=== PATIENT | female | born 1955 | race Caucasian/White ===

== ENCOUNTER → 2018-08-23 07:39 | Outpatient (CLI) | payer BC, SELFPAY ==
[2018-08-14 11:01] VITALS: BMI 29.4
[2018-08-23 10:12] LABS: ALB/GLOB Ratio 1.1 RATIO (0.9-2.4); AST(SGOT) 22 U/L (15-37); Alanine Aminotransfer ALT/SGPT 31 U/L (13-56); Albumin, Serum 3.8 g/dL (3.2-5.0); Alkaline Phosphatase 71 U/L (45-117); Anion Gap 10 (5-15); BUN 18 mg/dL (7-18); BUN/Creat Ratio 25.8 RATIO (10-20); Chloride 105 mmol/L (98-107); Cholesterol 201 mg/dL (200); EST Glomerular Filtration Rate 91 mL/min (>60); Est Glom Filt Rate - Afr Amer 110 mL/min (>60); Globulin 3.6 g/dL (2.2-4.2); Glucose 81 mg/dL (74-106); High Density Lipoprotein 90 mg/dL; Potassium 3.9 mmol/L (3.5-5.1); Protein, Total 7.4 g/dL (6.4-8.2); Sodium Level 141 mmol/L (136-145); Triglycerides 102 mg/dL; Very Low Density Lipoprotein 20 mg/dL (5-40)
== END ==
PROVIDERS: Family Provider Family Medicine; PCP Family Medicine; Referring Provider Family Medicine; Visit Provider Family Medicine
DX: Z12.11 Encounter for screening for malignant neoplasm of colon (principal); I10 Essential (primary) hypertension
CPT/HCPCS: 36415; 80053; 80061

== ENCOUNTER → 2018-08-23 08:49 | Outpatient (CLI) | payer BC, SELFPAY ==
[2018-08-14 11:01] VITALS: BMI 29.4
--- NOTE | 2018-08-23 08:51 | BI_ITS ---
MAMMOGRAPHY - BILATERAL SCREENING 3-D JARVIS SYNTHESIS REASON FOR EXAM: Female, 63 years old. Bilateral Screening 3-D tomosynthesis PERTINENT HISTORY: No significant family history. TECHNIQUE: 2-D mammograms and 3-D Jarvis synthesis of the breast (s) were performed. CAD was performed. COMPARISON: August 14, 2017 FINDINGS: The breast composition is almost entirely fat. Scattered benign calcifications are seen. No dense spiculated masses or suspicious microcalcifications are identified. No architectural distortion is identified. There is no skin thickening or retraction. There has been no significant change since the prior study. BI/SCREENING MAMM (CAD), BILAT IMPRESSION: No mammographic signs of malignancy. Routine yearly mammograms recommended. ASSESSMENT CATEGORY: BIRADS Category 1: Negative. A letter regarding these results will be sent to the patient by the facility within 30 days. FOLLOW UP RECOMMENDATION: Yearly follow up mammogram recommended. (A) Approximately 10% of breast cancers are not detected by mammography. A normal mammogram should not delay biopsy of a clinically suspicious abnormality. Electronically Signed: Yosef Johnson MD at 11:05 EST , Service support ,
== END ==
PROVIDERS: Family Provider Family Medicine; PCP Family Medicine; Referring Provider Family Medicine; Visit Provider Family Medicine
DX: Z12.31 Encounter for screening mammogram for malignant neoplasm of breast (principal)
CPT/HCPCS: 77063; 77067

== ENCOUNTER → 2018-08-26 07:47 | Outpatient (CLI) | payer BC, SELFPAY ==
[2018-08-14 11:01] VITALS: BMI 29.4
== END ==
PROVIDERS: Family Provider Family Medicine; PCP Family Medicine; Referring Provider Family Medicine; Visit Provider Family Medicine
DX: Z12.11 Encounter for screening for malignant neoplasm of colon (principal)
CPT/HCPCS: 82274

== ENCOUNTER → 2019-06-19 13:52 | Outpatient (CLI) | payer BC, SELFPAY ==
[2019-05-30 14:46] VITALS: BMI 29.4
--- NOTE | 2019-06-19 13:57 | BI_ITS ---
MAMMOGRAPHY - BILATERAL DIAGNOSTIC REASON FOR EXAM: Female, 63 years old. One-month history of right breast pain. PERTINENT HISTORY: Non-contributory. TECHNIQUE: Digital bilateral breast nino (3D mammographic acquisition) in the CC and MLO projections. 2-D mediolateral oblique (MLO) and craniocaudad (CC) views of both breasts were obtained. CAD: Full Field Digital Mammography with Computer Added Detection was performed. COMPARISON: Comparison is made with prior study dated August 15, 2018. FINDINGS: Breast Composition: The breasts are almost entirely fatty. There are no dominant masses or suspicious calcifications. No other significant abnormalities are identified. There has been no significant change since the prior study. BI/DIAG MAMM W/CAD, BILAT IMPRESSION: Stable bilateral diagnostic mammogram. With the patient's history of a right breast pain, correlation with ultrasound is recommended. ASSESSMENT CATEGORY: BIRADS Category 0: Incomplete. Need additional imaging evaluation. A letter regarding these results will be sent to the patient by the facility within 30 days. Approximately 10% of breast cancers are not detected by mammography. A normal mammogram should not delay biopsy of a clinically suspicious abnormality. Electronically Signed: Oli Mathews, at 15:41 EDT , Service support ,
--- NOTE | 2019-06-19 13:57 | US_ITS ---
STUDY: ULTRASOUND BREAST - RIGHT REASON FOR EXAM: Female, 63 years old. Pain at the site of the skin abnormality. TECHNIQUE: Axial and longitudinal images of the RIGHT breast were performed with a high resolution ultrasound transducer. COMPARISON: Comparison is made with prior mammogram done earlier in the day. FINDINGS: RIGHT Breast: The lower outer quadrant of the right breast was examined by ultrasound. There is homogeneous fibroglandular tissue. No solid or cystic mass lesion is seen. US/Breast Limited Unilateral IMPRESSION: Unremarkable sonographic examination. ASSESSMENT CATEGORY: BIRADS Category 1: Negative. A letter regarding these results will be sent to the patient by the facility within 30 days. Electronically Signed: Oli Mathews, at 15:45 EDT , Service support ,
== END ==
PROVIDERS: Family Provider Family Medicine; PCP Family Medicine; Referring Provider Nurse Practitioner Family; Visit Provider Nurse Practitioner Family
DX: N63.10 Unspecified lump in the right breast, unspecified quadrant (principal); N64.4 Mastodynia
CPT/HCPCS: 76642; 77062; 77066; G0279

== ENCOUNTER → 2019-09-09 13:45 | Outpatient (CLI) | payer BC, SELFPAY ==
[2019-09-09 13:20] VITALS: BMI 29.4
[2019-09-16 16:17] LABS: HPV HC, High Risk Negative (Negative)
[2019-09-16 16:18] LABS: HPV Reflexed? YES, CHARGE PATIENT
== END ==
PROVIDERS: Family Provider Family Medicine; PCP Family Medicine; Visit Provider Family Medicine
DX: Z01.419 Encounter for gynecological examination (general) (routine) without abnormal findings (principal)
CPT/HCPCS: 87624; 88175; G0145

== ENCOUNTER → 2019-09-26 09:07 | Outpatient (CLI) | payer BC, SELFPAY ==
[2019-09-09 13:20] VITALS: BMI 29.4
[2019-09-26 13:16] LABS: ALB/GLOB Ratio 1.1 RATIO (0.9-2.4); AST(SGOT) 23 U/L (15-37); Alanine Aminotransfer ALT/SGPT 30 U/L (13-56); Albumin, Serum 3.7 g/dL (3.2-5.0); Alkaline Phosphatase 69 U/L (45-117); Anion Gap 5 (5-15); BUN 15 mg/dL (7-18); BUN/Creat Ratio 19.4 RATIO (10-20); Calcium,Total 9.2 mg/dL (8.5-10.1); Chloride 108 mmol/L (98-107); Cholesterol 173 mg/dL (200); Creatinine, Serum 0.77 mg/dL (0.55-1.02); EST Glomerular Filtration Rate 81 mL/min (>60); Est Glom Filt Rate - Afr Amer 97 mL/min (>60); Globulin 3.5 g/dL (2.2-4.2); Glucose 87 mg/dL (74-106); High Density Lipoprotein 82 mg/dL; Potassium 4.3 mmol/L (3.5-5.1); Protein, Total 7.2 g/dL (6.4-8.2); Sodium Level 140 mmol/L (136-145); Triglycerides 87 mg/dL; Very Low Density Lipoprotein 17 mg/dL (5-40)
== END ==
PROVIDERS: PCP Family Medicine; Referring Provider Family Medicine; Visit Provider Family Medicine
DX: Z01.419 Encounter for gynecological examination (general) (routine) without abnormal findings (principal); E78.00 Pure hypercholesterolemia, unspecified
CPT/HCPCS: 36415; 80053; 80061

== ENCOUNTER → 2020-07-30 | Outpatient (CLI) | payer BC, SELFPAY | END | disposition home or self-care (01) | LOC: LABSPEC 14:09 | PROVIDERS: PCP Family Medicine; Referring Provider Nurse Practitioner Family; Visit Provider Nurse Practitioner Family | DX: U07.1 COVID-19 (principal) | CPT/HCPCS: 87635; U0003 ==

== ENCOUNTER → 2021-07-06 14:34 | Outpatient (CLI) | payer MEDICARE, SELFPAY ==
[2021-07-06 18:21] LABS: AST(SGOT) 21 U/L (15-37); Alanine Aminotransfer ALT/SGPT 27 U/L (13-56); Albumin, Serum 3.8 g/dL (3.2-5.0); Alkaline Phosphatase 72 U/L (45-117); Anion Gap 7 (5-15); BUN 16 mg/dL (7-18); BUN/Creat Ratio 20.5 RATIO (10-20); Calcium,Total 9.4 mg/dL (8.5-10.1); Chloride 107 mmol/L (98-107); Cholesterol 175 mg/dL (200); Creatinine, Serum 0.78 mg/dL (0.55-1.02); EST Glomerular Filtration Rate 79 mL/min (>60); Est Glom Filt Rate - Afr Amer 96 mL/min (>60); Globulin 3.9 g/dL (2.2-4.2); Glucose 87 mg/dL (74-106); High Density Lipoprotein 76 mg/dL; Protein, Total 7.7 g/dL (6.4-8.2); Sodium Level 139 mmol/L (136-145); Triglycerides 126 mg/dL; Very Low Density Lipoprotein 25 mg/dL (5-40)
[2021-07-08 13:48] LABS: LDL, Direct 120295 81 mg/dL (0-99)
== END ==
PROVIDERS: PCP Family Medicine; Referring Provider Family Medicine; Visit Provider Family Medicine
DX: I10 Essential (primary) hypertension (principal); E78.00 Pure hypercholesterolemia, unspecified
CPT/HCPCS: 36415; 80053; 80061; 83721

== ENCOUNTER → 2021-08-02 09:46 | Outpatient (CLI) | payer MEDICARE, SELFPAY ==
--- NOTE | 2021-08-02 09:48 | BI_ITS ---
MAMMOGRAPHY - BILATERAL SCREENING REASON FOR EXAM: Female, 65 years old. Routine annual screening examination. PERTINENT HISTORY: Non-contributory. TECHNIQUE: Digital bilateral breast jarvis (3D mammographic acquisition) in the CC and MLO projections. 2-D mediolateral oblique (MLO) and craniocaudad (CC) views of both breasts were obtained. CAD: Full Field Digital Mammography with Computer Added Detection was performed. COMPARISON: Comparison is made with prior examination done 06/19/2019 and 08/23/2018. FINDINGS: Breast Composition: The breasts are almost entirely fatty. There are no dominant masses or suspicious calcifications. No other significant abnormalities are identified. There has been no significant change since the prior study. BI/SCRN MAMM (CAD)W/JARVIS BILAT IMPRESSION: Stable bilateral screening mammogram. Yearly follow-up mammogram recommended. (A) ASSESSMENT CATEGORY: BIRADS Category 1: Negative. A letter regarding these results will be sent to the patient by the facility within 30 days. Approximately 10% of breast cancers are not detected by mammography. A normal mammogram should not delay biopsy of a clinically suspicious abnormality. [id number] Electronically Signed: Oli Mathews MD at 10:36 EST , Service support ,
== END ==
PROVIDERS: PCP Family Medicine; Referring Provider Family Medicine; Visit Provider Family Medicine
DX: Z12.31 Encounter for screening mammogram for malignant neoplasm of breast (principal)
CPT/HCPCS: 77063; 77067

== ENCOUNTER 2021-11-15 10:24 | Outpatient (CLI) | payer MEDICARE, SELFPAY ==
--- NOTE | 2021-11-15 10:25 | RAD_ITS ---
STUDY: X-RAY - RIGHT SHOULDER REASON FOR EXAM: Female, 66 years old. PAIN TECHNIQUE 4 view(s) of the shoulder. COMPARISON: None. FINDINGS: Normal glenohumeral articulation. Normal acromioclavicular joint. Normal acromion. Normal humeral head and visualized proximal humerus. The soft tissue structures are unremarkable. Normal visualized pulmonary apex. RAD/Shoulder min 2 Views IMPRESSION: Normal x-ray examination of the shoulder. Electronically Signed: Juan Pablo Clemons MD at 6:53 EDT ,
== END 2021-11-15 23:59 | disposition home or self-care (01) ==
PROVIDERS: PCP Family Medicine; Referring Provider Nurse Practitioner Family; Visit Provider Nurse Practitioner Family
DX: M25.511 Pain in right shoulder (principal)
CPT/HCPCS: 73030

== ENCOUNTER → 2022-03-02 | Outpatient (CLI) | payer MEDICARE, SELFPAY ==
--- NOTE | 2022-03-02 15:36 | MRI_ITS ---
STUDY: MRI RIGHT SHOULDER REASON FOR EXAM: Female, 66 years old. right shoulder pain right shoulder pain TECHNIQUE: Standardized fat and water weighted pulse sequences were obtained in all 3 orthogonal planes. COMPARISON: None. FINDINGS: Normal supraspinatus tendon. Normal infraspinatus tendon. Normal subscapularis tendon. Normal teres minor tendon. Normal supraspinatus muscle. Normal infraspinatus muscle. Normal subscapularis muscle. Normal teres minor muscle. Normal glenohumeral articulation. Normal humeral head and visualized proximal humerus. Normal biceps labral complex. Normal intracapsular long biceps tendon. Normal labrum. Normal capsulo- ligamentous complex. Normal rotator interval. There is moderate osteoarthritis of the acromioclavicular articulations. There is a Type II morphology (curved), with a neutral orientation. There is minimal fluid distention of the subacromial bursa, consistent with mild subacromial-subdeltoid bursitis. Normal visualized coracohumeral and coracoacromial ligaments. Normal quadrilateral space. Normal axillary space. Normal deltoid muscle. Normal trapezius muscle. MRI/Upper Ext Joint Only(Routine) IMPRESSION: There is minimal fluid distention of the subacromial bursa, consistent with mild subacromial-subdeltoid bursitis. Electronically Signed: Elijah Tesfaye MD at 17:21 EDT Reading Location ID and State: [facility] / [place] , Service support ,
== END | disposition home or self-care (01) ==
PROVIDERS: PCP Family Medicine; Referring Provider Nurse Practitioner; Visit Provider Nurse Practitioner
DX: M75.41 Impingement syndrome of right shoulder (principal)
CPT/HCPCS: 73221

== ENCOUNTER → 2022-08-23 | Outpatient (CLI) | payer MEDICARE, SELFPAY ==
[2022-08-23 17:35] LABS: ALB/GLOB Ratio 1.3 RATIO (0.9-2.4); AST(SGOT) 24 U/L (15-37); Alanine Aminotransfer ALT/SGPT 35 U/L (13-56); Albumin, Serum 4.1 g/dL (3.2-5.0); Alkaline Phosphatase 67 U/L (45-117); Anion Gap 5 (5-15); BUN 21 mg/dL (7-18); BUN/Creat Ratio 23.9 RATIO (10-20); Calcium,Total 9.5 mg/dL (8.5-10.1); Chloride 107 mmol/L (98-107); Cholesterol 211 mg/dL (200); Creatinine, Serum 0.88 mg/dL (0.55-1.02); EST Glomerular Filtration Rate 69 mL/min (>60); Est Glom Filt Rate - Afr Amer 83 mL/min (>60); Globulin 3.1 g/dL (2.2-4.2); Glucose 85 mg/dL (74-106); High Density Lipoprotein 98 mg/dL; Potassium 4.6 mmol/L (3.5-5.1); Protein, Total 7.2 g/dL (6.4-8.2); Sodium Level 140 mmol/L (136-145); Triglycerides 93 mg/dL; Very Low Density Lipoprotein 19 mg/dL (5-40)
== END | disposition home or self-care (01) ==
LOC: BIMLAB 15:52
PROVIDERS: PCP Family Medicine; Referring Provider Family Medicine; Visit Provider Family Medicine
DX: I10 Essential (primary) hypertension (principal)
CPT/HCPCS: 36415; 80053; 80061

== ENCOUNTER → 2022-08-30 | Outpatient (CLI) | payer MEDICARE, OTHER, SELFPAY ==
--- NOTE | 2022-08-30 08:17 | BI_ITS ---
MAMMOGRAPHY - BILATERAL SCREENING REASON FOR EXAM: Female, 67 years old. Routine annual screening examination. PERTINENT HISTORY: Non-contributory. TECHNIQUE: Digital bilateral breast jarvis (3D mammographic acquisition) in the CC and MLO projections. 2-D mediolateral oblique (MLO) and craniocaudad (CC) views of both breasts were obtained. CAD: Full Field Digital Mammography with Computer Added Detection was performed. COMPARISON: Comparison is made with prior study dated 08/02/2021 and 06/19/2019. FINDINGS: Breast Composition: The breasts are almost entirely fatty. There are no dominant masses or suspicious calcifications. No other significant abnormalities are identified. There has been no significant change since the prior study. BI/SCRN MAMM (CAD)W/JARVIS BILAT IMPRESSION: Stable bilateral screening mammogram. Yearly follow-up mammogram recommended. (A) ASSESSMENT CATEGORY: BIRADS Category 1: Negative. A letter regarding these results will be sent to the patient by the facility within 30 days. Approximately 10% of breast cancers are not detected by mammography. A normal mammogram should not delay biopsy of a clinically suspicious abnormality. [id number] Electronically Signed: Oli Mathews MD at 8:56 EST ,
== END | disposition home or self-care (01) ==
PROVIDERS: PCP Family Medicine; Visit Provider Family Medicine
DX: Z12.31 Encounter for screening mammogram for malignant neoplasm of breast (principal)
CPT/HCPCS: 77063; 77067

== ENCOUNTER → 2023-09-04 | Outpatient (CLI) | payer MEDICARE, OTHER, SELFPAY ==
--- NOTE | 2023-09-04 16:01 | RAD_ITS ---
STUDY: X-RAY - PELVIS AND RIGHT HIP REASON FOR EXAM: Female, 68 years old. right hip pain TECHNIQUE: 3 views of the pelvis and hip. COMPARISON: None. FINDINGS: There is a non-specific bowel gas pattern. Normal visualized soft tissue structures. Normal bilateral iliac wings, sacroiliac joints and visualized sacrum. Normal bilateral superior and inferior pubic rami. Normal pubic symphysis. Normal bilateral ischial tuberosities. Normal visualized femoral head. Mild subchondral cystic changes in the right acetabulum. Normal hip joint. RAD/HIP, UNI W/ Pelvis 2-3 Views IMPRESSION: Mild subchondral cystic changes within the acetabulum. No acute fracture or other significant bony pathology If pain persists MRI recommended Electronically Signed: Nikita Perez MD at 19:49 EST ,
--- OUTSIDE RECORDS SUMMARY | 2023-09-04 17:53 | XMS RPT_ITS | CCD ---
Author Name Unknown Address [address] [place] [address] Organization [facility] Care Team Providers Care Machine Former Name Role Phone Luis Eduardo Watts DO Primary Care Provider LUIS EDUARDO WATTS DO Primary Care Physician MARIAN CARDOSO Attending Unavailable BROWN, LUIS EDUARDO R Primary Care Unavailable MARIAN CARDOSO Referring Unavailable BROWN LUIS EDUARDO R Primary Care Unavailable MARIE DIMAS Attending MARIE Mullins Referring Denisavakalie Watts DO Luis Eduardo R Primary Care Provider Luis Eduardo Watts R Primary Care Provider BEBO BOGGS Attending Unavailable BROWN, LUIS EDUARDO Primary Care Unavailable BEBO BOGGS Referring Unavailable BROWN, LUIS EDUARDO Primary Care Unavailable RHETT LEWIS Attending Unavailable RHETT LEWIS Attending Unavailable ALMAZ, LUIS EDUARDO R Primary Care Unavailable RHETT LEWIS Referring Unavailable RHETT LEWIS Referring Unavailable RHETT LEWIS Attending Unavailable BROWN, LUIS EDUARDO R Primary Care Unavailable BROWN, LUIS EDUARDO R Primary Care Unavailable BROWN, LUIS EDUARDO R Primary Care Unavailable RHETT LEWIS Attending Unavailable Allergies Allergy Classification Reported Allergen(s) Allergy Type Date of Onset Reaction(s) Facility (19 sources) Sulfonamides (Antibiotic); Translations: [SULFA (SULFONAMIDE ANTIBIOTICS)] Propensity to adverse reactions to drug 9 Unknown [facility] Work Phone: (2 sources) Sulfamethoxazole; Translations: [sulfamethoxazole ] Drug Allergy [facility] Medications Current Medications Medication Drug Class(es) Dates Sig (Normalized) Sig (Original) calcium carbonate 500 mg oral tablet (2 sources) Start: 10-19-2009 take 500 mg by mouth twice daily calcium carbonate 500 mg, PO, BID Start Date: 10/19/09 Status: Ordered Fish Oils (2 sources) Start: 06-23-2015 Fish Oil 1200 mg oral capsule Dose : 1,200 mg = 1 cap(s), Oral, TID, 0 Refill(s) Start Date: 06/23/15 Status: Ordered meloxicam 15 mg oral tablet (2 sources) Nonsteroidal Anti-inflammatory Drug Start: 02-28-2022 take 1 tablet by mouth once daily as needed for pain meloxicam (Mobic) 15 MG tablet TAKE 1 TABLET BY MOUTH EVERY DAY NEEDED FOR PAIN. TAKE TYLENOL FOR BREAKTHROUGH PAIN 0 02/28/2022 Active 24 hr metoprolol succinate 25 mg extended release oral tablet (19 sources) beta-Adrenergic Nando Start: 02-25-2021 End: 02-23-2024 take 0.5 tablet by mouth once daily in the morning metoprolol succinate ER (TOPROL XL) 25 mg 24 hr tablet Indications: Benign hypertension Take 0.5 tablets by mouth every morning. 45 tablet 3 02/28/2023 02/23/2024 Active Completed/Discontinued Medications Medication Drug Class(es) Dates Sig (Normalized) Sig (Original) aspirin 81 mg delayed release oral tablet (18 sources) Platelet Aggregation Inhibitor, Nonsteroidal Anti-inflammatory Drug Start: 06-23-2015 take 1 tablet by mouth once daily aspirin, enteric coated (ECOTRIN LOW STRENGTH) 81 mg EC tablet Take 1 tablet by mouth once daily. 0 02/19/2020 Active Problems Active Problems Problem Classification Problem Date Documented Date Episodic/Chronic Cardiac dysrhythmias (15 sources) Nonsustained ventricular tachycardia ; Translations: [Ventricular tachycardia] 02-19-2020 Chronic Conduction disorders (15 sources) Left bundle branch block; Translations: [Left bundle-branch block, unspecified] 02-19-2020 Chronic Congestive heart failure; nonhypertensive (16 sources) Chronic systolic heart failure; Translations: [Chronic systolic (congestive) heart failure] Onset: 0 02-19-2020 Chronic Coronary atherosclerosis and other heart disease (15 sources) Coronary arteriosclerosis; Translations: [Atherosclerotic heart disease of [place] coronary artery without angina pectoris] 02-19-2020 Chronic Disorders of lipid metabolism (16 sources) Mixed hyperlipidemia; Translations: [Mixed hyperlipidemia] Onset: 0 02-19-2020 Chronic Essential hypertension (18 sources) Benign hypertension; Translations: [Essential (primary) hypertension] Onset: 0 02-19-2020 Chronic Other aftercare (1 source) Long-term current use of drug therapy; Translations: [Other director long term care (current) drug therapy] Episodic Other aftercare (1 source) Drug monitoring done; Translations: [Encounter for therapeutic drug level monitoring] Episodic Other connective tissue disease (1 source) Impingement syndrome of right shoulder region; Translations: [Impingement syndrome of right shoulder] Episodic Other connective tissue disease (2 sources) Digital mucous cyst of right hand; Translations: [Ganglion, right hand] 01-31-2023 Episodic Other connective tissue disease (2 sources) Ganglion, right hand; Translations: [Ganglion, right hand] Onset: 3 Episodic Other non-traumatic joint disorders (1 source) Pain of right shoulder joint; Translations: [Pain in right shoulder] Episodic Other screening for suspected conditions (not mental disorders or infectious disease) (1 source) Electrocardiogram abnormal; Translations: [Abnormal electrocardiogram [ECG] [EKG]] Episodic Alyson-; endo-; and myocarditis; cardiomyopathy (except that caused by tuberculosis or sexually transmitted disease) (15 sources) Dilated cardiomyopathy; Translations: [Dilated cardiomyopathy] 02-19-2020 Chronic Residual codes; unclassified (3 sources) Personal history of other medical treatment; Translations: [H/O echocardiogram] Onset: 0 Episodic Residual codes; unclassified (1 source) Other specified health status; Translations: [Non-smoker] Onset: 4 Episodic Syncope (1 source) Syncope; Translations: [Syncope and collapse] Episodic Past or Other Problems Problem Classification Problem Date Documented Date Episodic/Chronic Other connective tissue disease (2 sources) Impingement syndrome of right shoulder; Translations: [Impingement syndrome of right shoulder] Onset: 12-30-2021 Episodic Residual codes; unclassified (15 sources) Past history of procedure; Translations: [Personal history of other medical treatment] Onset: 04-23-2018 02-19-2020 Episodic Residual codes; unclassified (15 sources) History of cardiac catheterization; Translations: [Other specified postprocedural states] Onset: 10-21-2009 02-19-2020 Episodic Residual codes; unclassified (1 source) Other specified postprocedural states; Translations: [History of cardiac cath] Onset: 02-19-2020 Episodic Syncope (1 source) Syncope Onset: 01-09-2023 Results Test Name Value Interpretation Reference Range Facil ity Vital Signs Date Time Vital Sign Value Performing Clinician Faci lity 01-31-2023 13:01-0400 Body height 170.2 cm Bebo Boggs MD Work Phone: [facility] 01-31-2023 13:01-0400 Body mass index (BMI) [Ratio] 28.19 kg/m2 Bebo Boggs MD Work Phone: [facility] 01-31-2023 13:01-0400 Body weight 81.65 kg Bebo Boggs MD Work Phone: [facility] 01-31-2023 13:01-0400 Diastolic blood pressure 72 mm[Hg] Bebo Boggs MD Work Phone: [facility] 01-31-2023 13:01-0400 Systolic blood pressure 124 mm[Hg] Bebo Boggs MD Work Phone: [facility] Encounters Encounter Date Encounter Type Care Provider Facility Start: 08-29-2023 End: 08-29-2023 ambulatory LUIS EDUARDO WTATS Facility:[id number] Start: 03-15-2023 Refill Rhett caro DO Work Phone: [facility] Cardiology Procedures Date Procedure Procedure Detail Performing Clinician Start: 02-06-2023 Echo tthrc r-t 2d w/ wom-mode compl spec&colr d Rhett Lewis DO Work Phone: Start: 01-31-2023 Radex fingr minimum 2 views Bebo Boggs MD Work Phone: Start: 08-30-2022 Mammography Bebo pitts MD Work Phone: Start: 06-24-2010 Catheterization DEMETRIUS YO STEPHANIE Plan of Treatment Date Care Activity Detail Author Start: 02-20-2024 BP CONTROLLED (<130/80) BP CONTROLLED (<130/80) [facility] Start: 08-30-2023 Screening for malignant neoplasm of breast Mammogram [facility] Start: 04-27-2023 Influenza vaccination [facility] Start: 2022 ADVANCE DIRECTIVE DISCUSSION ADVANCE DIRECTIVE DISCUSSION [facility] Start: 2022 BONE DENSITY BONE DENSITY [facility] Start: 2022 Bone Density Screening Bone Density Screening [facility] Start: 2022 Pneumococcal Vaccine: 65+ Years (1 - PCV) Pneumococcal Vaccine: 65+ Years (1 - PCV) [facility] Start: 08-27-2022 DEPRESSION ASSESSMENT DEPRESSION ASSESSMENT [facility] Start: 04-27-2022 Influenza vaccination [facility] Start: 02-21-2022 BP CONTROLLED (<130/80) BP CONTROLLED (<130/80) [facility] Start: 04-27-2021 Influenza vaccination INFLUENZA (#1) [facility] Start: 2007 SHINGRIX VACCINE (1 of 2) SHINGRIX VACCINE (1 of 2) [facility] Start: 2007 Zoster Vaccines (1 of 2) Zoster Vaccines (1 of 2) [facility] Start: 2002 COLOGUARD (FIT-DNA) COLOGUARD (FIT-DNA) [facility] Start: 2002 Colonoscopy COLONOSCOPY [facility] Start: 2002 COLORECTAL CANCER SCREENING COLORECTAL CANCER SCREENING [facility] Start: [address] COLONOGRAPHY [facility] Start: 2002 DIABETES SCREEN DIABETES SCREEN [facility] Start: 2002 Diabetes Screening Diabetes Screening [facility] Start: 2002 FECAL OCCULT BLOOD FECAL OCCULT BLOOD [facility] Start: 2002 Lipid 1996 panel - Serum or Plasma Lipid Screening [facility] Start: 2002 LIPID SCREEN LIPID SCREEN [facility] Start: 2002 SIGMOIDOSCOPY SIGMOIDOSCOPY [facility] Start: 1997 Mammography [facility] Start: 1987 HPV TESTING HPV TESTING [facility] Start: 1987 Screening for malignant neoplasm of cervix [facility] Start: 1978 PAP TESTING PAP TESTING [facility] Start: 1978 Screening for malignant neoplasm of cervix Pap Smear [facility] Start: 1976 [facility] Start: 1975 ANNUAL PCP TEAM CHRONIC DISEASE VISIT ANNUAL PCP TEAM CHRONIC DISEASE VISIT [facility] Start: 1975 BP CONTROLLED (<130/80) BP CONTROLLED (<130/80) [facility] Start: 1975 Diabetes mellitus screening Diabetes Screening [facility] Start: 1975 Hepatitis B surface antibody level LDL CHOLESTEROL [facility] Start: 1975 HEPATITIS C SCREENING HEPATITIS C SCREENING [facility] Start: 1975 Hepatitis C screening Hepatitis C Screening [facility] Start: 1975 HIV SCREENING HIV SCREENING [facility] Start: 1969 Adult depression screening assessment DEPRESSION SCREENING [facility] Start: 1964 DTaP/Tdap/Td Vaccines (1 - Tdap) DTaP/Tdap/Td Vaccines (1 - Tdap) [facility] Start: 1963 PNEUMOCOCCAL (1 - PCV) PNEUMOCOCCAL (1 - PCV) [facility] Start: 1963 Pneumococcal Vaccine: 65+ (1 - PCV) Pneumococcal Vaccine: 65+ (1 - PCV) [facility] Start: 1963 PNEUMOCOCCAL: 65+ (1 - PCV) PNEUMOCOCCAL: 65+ (1 - PCV) [facility] Start: 1962 COVID-19 VACCINE (#1) COVID-19 VACCINE (#1) [facility] Start: 1962 COVID-19 VACCINE (1) COVID-19 VACCINE (1) [facility] Start: 1958 MMR Vaccines (1 of 1 - Standard series) MMR Vaccines (1 of 1 - Standard series) [facility] Start: 02-25-1958 COVID-19 VACCINE (#1) COVID-19 VACCINE (#1) [facility] Start: 1957 Annual wellness visit Medicare Initial Physical (IPPE) [facility] Start: 1957 Creatinine measurement Creatinine Level [facility] Start: 1957 Echocardiography Echocardiogram [facility] Start: 1957 Lipid panel Lipid Panel [facility] Start: 1957 Medicare Annual Wellness (AWV) Medicare Annual Wellness (AWV) [facility] Start: 1957 Potassium measurement Potassium Level [facility] Start: 1957 Screening for malignant neoplasm of colon [facility] Start: 1957 Screening for osteoporosis Bone Density Scan [facility] End: 01-04-2024 Echocardiography ECHO Cardiology Routine Syncope, unspecified syncope type 1 Occurrences starting 01/04/2023 until 01/04/2024 [facility] Work Phone: Payers Date Payer Category Payer Medicare [id number] 2022 Unknown [id number] 2021 Unknown [id number] 2019 Medicare [id number] 2019 Unknown ANTHEM BLUE CROS S AND BLUE SHIELD ANTHEM MEDIBLUE HMO [id number] 2019-Present [phone] [address] [place] [address] HMO [id number] 2019 Unknown [id number] 2017 Medicare [id number] 2012 Unknown [employer]M BLUE CARD PPO OOS [id number] 2012-2019 [address] [place] [address] PPO [id number] 1957 Unknown [id number] 1957 Unknown [id number] Unknown [id number] Unknown [id number] Social History Date Type Detail Facility Start: 02-21-2021 End: 02-19-2023 Tobacco smoking status NHIS Never smoked tobacco [facility] Start: 02-21-2021 End: 02-19-2023 Tobacco use and exposure Smokeless tobacco non-user [facility] Start: 02-21-2021 End: 01-09-2023 Alcohol intake Current drinker of alcohol (finding) [facility] Start: 02-21-2021 History SDOH Alcohol Comment couple times a week [facility] Start: 1955 Sex Assigned At Female C [facility] Work Phone: Sex Assigned At Sex [facility] Tobacco smoking status NHIS Tobacco smoking consumption unknown [facility] Start: 01-22-2021 End: 01-31-2023 Exposure to SARS-CoV-2 (event) Not sure [facility] Start: 12-29-2022 End: 01-31-2023 History of Social function [facility] Start: 12-29-2022 End: 01-31-2023 Tobacco use panel [facility] Start: 1955 Sex Assigned At Not on file S [facility] National Score (1-100), lower number is lower risk 73 [facility] Start: 02-19-2020 Gender identity Identifies as female gender (finding) [facility] Work Phone: Functional Status Date Assessment Result Facility 12-30-2021 Functional Status Home Living Ad ditional Information OBJECTIVE Vitals: BP 127/73 Posture: slight forward head, forward shoulders Gait: amb with no AD Transfers: WNL Sensation: no abnormalities or asymmetries reported Reflexes: NT Edema: none AROM: left UE WNL, right UE WNL except, functional IR ~~L3 with functional IR of L ~ T11 - however functional limits with some pain PROM: pain with endrange flexion, abduction, and ER - WNL Cervical AROM: no ROM provokes shoulder symptoms [facility] 11-18-2021 Functional Status [facility] Clinical Notes 04-01-2015 to 08-29-2023 Telephone Encounter - Manju Becker Ginger - 03/15/2023 6:52 AM EDTTelephone Encounter - Manju BeckerGinger - 02/28/2023 8:51 AM EDTTelephone Encounter - Eusebio Solomon - 02/26/2023 8:49 AM EDT Note Date & Type Note Facility 08-29-2023 Note HNO ID: [id number] Author: RHETT LEWIS, DO Service: ? Author Type: Physician Type: Progress Notes Filed: 08/31/2023 05:26 Note Text: Referring Provider: No ref. provider found Date: August 29, 2023 Chief Complaint: Established Patient Follow-Up (HTN) HISTORY OF PRESENT ILLNESS: Ramirez Mario is a 68 year old female who presents for Established Patient Follow-Up (HTN). ALLERGIES Allergen Reactions Sulfa (Sulfonamide * Unknown PAST MEDICAL HISTORY: PAST MEDICAL HISTORY Diagnosis Date Benign hypertension CAD (coronary artery disease) Chronic systolic (congestive) heart failure (HCC) Dilated cardiomyopathy (HCC) H/O echocardiogram 04/23/2018 EF 50%, mild-mod [place], trace TR History of cardiac cath 10/21/2009 Minimal non obstructive CAD by cardia cath at [facility] History of cardiac catheterization 2009 min cad with 35% History of cardiac monitoring 12/29/2022 Patient completed event monitor secondary to syncope and collapse. Underlying sinus rhythm was noted ranging 50-1 33 average heart rate 72. Occasional PVCs noted 1 9 beat run of a wide-complex rhythm was noted rate 133 this occurred on January 01 at the time of 11:00. History of echocardiogram 01/2023 Normal cardiac size. EF low end normal 55%. Mild TR. Trace MR. AV normal. History of nuclear stress test 01/09/2023 ef 65, no ischemia LBBB (left bundle branch block) Mixed hyperlipidemia NSVT (nonsustained ventricular tachycardia) ([facility]) 2022 By 2009 event monitor and in a monitor 2022 PAST SURGICAL HISTORY Procedure Laterality Date LEG SURGERY HX Right OTHER Left 07/05/2020 squamous cell carcinoma removed L shoulder FAMILY HISTORY Problem Relation Age of Onset Coronary Artery Disease Mother Diabetes Mother Arthritis Father other (Skin cancer) Sister Cancer Sister Leimosarcoma SOCIAL HISTORY: Tobacco Use: Never Alcohol Use: Yes (couple times a week) Drug Use: Never Employer And Job Title: None on file Years Of Education Completed: Not specified Marital Status: MEDICATIONS: Current Outpatient Medications Medication Sig simvastatin (ZOCOR) 40 mg tablet TAKE 1 TABLET BY MOUTH EVERY DAY IN THE EVENING metoprolol succinate ER (TOPROL XL) 25 mg 24 hr tablet Take 0.5 tablets by mouth every morning. losartan (COZAAR) 50 mg tablet TAKE 1 TABLET BY MOUTH EVERY DAY Cholecalciferol, Vitamin D3, 50 mcg (2,000 unit) cap Take 1 capsule by mouth once daily. multivitamin tablet Take 1 tablet by mouth once daily. aspirin, enteric coated (ECOTRIN LOW STRENGTH) 81 mg EC tablet Take 1 tablet by mouth once daily. No current facility-administered medications for this visit. I have personally reviewed the patients past medical history including social, family, surgical, diagnostics, and medications. REVIEW OF SYSTEMS: Review of Systems Constitutional: Negative for chills and fatigue. Respiratory: Negative for chest tightness and shortness of breath. Cardiovascular: Negative for chest pain, palpitations and leg swelling. Neurological: Negative for dizziness, syncope, weakness and light-headedness. Hematological: Does not bruise/bleed easily. Psychiatric/Behavioral: Negative for confusion and hallucinations. Vitals: BP 124/76 (BP Site: Left Arm, BP Position: Sitting) Pulse 62 Ht 170.2 cm (5' 7 ) Wt 91.2 kg (201 lb) BMI 31.48 kg/m? PHYSICAL EXAMINATION: BP 124/76 (BP Site: Left Arm, BP Position: Sitting) Pulse 62 Ht 170.2 cm (5' 7 ) Wt 91.2 kg (201 lb) BMI 31.48 kg/m? Last 3 Encounter BP Readings: Date: BP: 02/19/2023 112/72 02/20/2022 118/82 02/21/2021 122/78 Last 3 Encounter Pulse Readings: Date: Pulse: 02/19/2023 65 02/20/2022 60 02/21/2021 64 Last 3 Encounter Wt Readings: Date: Wt: 02/19/2023 88.5 kg (195 lb) 02/20/2022 85.3 kg (188 lb) 02/21/2021 85.7 kg (189 lb) Physical Exam Vitals reviewed. Constitutional: General: She is not in acute distress. Appearance: Normal appearance. HENT: Head: Normocephalic. Right Ear: External ear normal. Left Ear: External ear normal. Nose: Nose normal. Mouth/Throat: Mouth: Mucous membranes are moist. Eyes: Extraocular Movements: Extraocular movements intact. Cardiovascular: Rate and Rhythm: Normal rate and regular rhythm. Pulses: Normal pulses. Carotid pulses are 2+ on the right side and 2+ on the left side. Radial pulses are 2+ on the right side and 2+ on the left side. Posterior tibial pulses are 2+ on the right side and 2+ on the left side. Heart sounds: Normal heart sounds. No murmur heard. Pulmonary: Effort: Pulmonary effort is normal. Breath sounds: Normal breath sounds. Abdominal: General: Abdomen is flat. Bowel sounds are normal. Palpations: Abdomen is soft. Tenderness: There is no abdominal tenderness. Musculoskeletal: General: Normal range of motion. Cervical back: Normal range of motion. Right lower leg: No edema. Left lower leg: No edema. Skin: (more content not included)... [facility] 03-15-2023 Miscellaneous Notes Pharmacy faxes requesting refill: Requested Prescriptions Pending Prescriptions Disp Refills simvastatin (ZOCOR) 40 mg tablet [Pharmacy Med Name: SIMVASTATIN 40 MG TABLET] 90 tablet 3 Sig: TAKE 1 TABLET BY MOUTH EVERY DAY IN THE EVENING Date of last visit:02/19/2023 Phone #: [phone] (home) [phone] (cell) The patients preferred pharmacy has been captured for this encounter? yes documented in this encounter [facility] 02-28-2023 Miscellaneous Notes Pharmacy faxes requesting refill: Requested Prescriptions Pending Prescriptions Disp Refills metoprolol succinate ER (TOPROL XL) 25 mg 24 hr tablet [Pharmacy Med Name: METOPROLOL SUCC ER 25 MG TAB] 45 tablet 3 Sig: TAKE 1/2 TABLET BY MOUTH EVERY DAY Date of last visit:02/19/23 Phone #: [phone] (home) [phone] (cell) The patients preferred pharmacy has been captured for this encounter? yes documented in this encounter [facility] 02-26-2023 Miscellaneous Notes Pharmacy faxes requesting refill: Requested Prescriptions Pending Prescriptions Disp Refills losartan (COZAAR) 50 mg tablet [Pharmacy Med Name: LOSARTAN POTASSIUM 50 MG TAB] 90 tablet 3 Sig: TAKE 1 TABLET BY MOUTH EVERY DAY Date of last visit:02/19/2023 Phone #: [phone] (home) [phone] (cell) The patients preferred pharmacy has been captured for this encounter? yes documented in this encounter [facility] 02-19-2023 Note HNO ID: [id number] Author: Rhett Lewis DO Service: ? Author Type: Physician Type: Progress Notes Filed: 02/20/2023 5:32 AM Note Text: Referring Provider: Rhett Lewis DO Date: February 19, 2023 Chief Complaint: Established Patient Follow-Up (1 year follow up, hx of HTN. ) HISTORY OF PRESENT ILLNESS: Ramirez Mario is a 67 year old female who presents for Established Patient Follow-Up (1 year follow up, hx of HTN. ). ALLERGIES Allergen Reactions Sulfa (Sulfonamide * Unknown PAST MEDICAL HISTORY: PAST MEDICAL HISTORY Diagnosis Date Benign hypertension CAD (coronary artery disease) Chronic systolic (congestive) heart failure (HCC) Dilated cardiomyopathy (HCC) H/O echocardiogram 04/23/2018 EF 50%, mild-mod [place], trace TR History of cardiac cath 10/21/2009 Minimal non obstructive CAD by cardia cath at [facility] History of cardiac catheterization 2009 min cad with 35% History of cardiac monitoring 12/29/2022 Patient completed event monitor secondary to syncope and collapse. Underlying sinus rhythm was noted ranging 50-1 33 average heart rate 72. Occasional PVCs noted 1 9 beat run of a wide-complex rhythm was noted rate 133 this occurred on January 01 at the time of 11:00. History of echocardiogram 01/2023 Normal cardiac size. EF low end normal 55%. Mild TR. Trace MR. AV normal. History of nuclear stress test 01/09/2023 ef 65, no ischemia LBBB (left bundle branch block) Mixed hyperlipidemia NSVT (nonsustained ventricular tachycardia) (HCC) By 2009 event monitor PAST SURGICAL HISTORY Procedure Laterality Date LEG SURGERY HX Right OTHER Left 07/05/2020 squamous cell carcinoma removed L shoulder FAMILY HISTORY Problem Relation Age of Onset Coronary Artery Disease Mother Diabetes Mother Arthritis Father other (Skin cancer) Sister Cancer Sister Leimosarcoma SOCIAL HISTORY: Tobacco Use: Never Alcohol Use: Yes (couple times a week) Drug Use: Not on file Employer And Job Title: None on file Years Of Education Completed: Not specified Marital Status: MEDICATIONS: Current Outpatient Medications Medication Sig losartan (COZAAR) 50 mg tablet Take 1 tablet by mouth once daily. simvastatin (ZOCOR) 40 mg tablet TAKE 1 TABLET BY MOUTH EVERY DAY IN THE EVENING metoprolol succinate ER (TOPROL XL) 25 mg 24 hr tablet TAKE 1/2 TABLET BY MOUTH EVERY DAY Cholecalciferol, Vitamin D3, 50 mcg (2,000 unit) cap Take 1 capsule by mouth once daily. multivitamin tablet Take 1 tablet by mouth once daily. aspirin, enteric coated (ECOTRIN LOW STRENGTH) 81 mg EC tablet Take 1 tablet by mouth once daily. No current facility-administered medications for this visit. I have personally reviewed the patients past medical history including social, family, surgical, diagnostics, and medications. REVIEW OF SYSTEMS: Review of Systems Constitutional: Negative for chills and fatigue. Respiratory: Negative for chest tightness and shortness of breath. Cardiovascular: Negative for chest pain, palpitations and leg swelling. Neurological: Negative for dizziness, syncope, weakness and light-headedness. Hematological: Bruises/bleeds easily. Psychiatric/Behavioral: Negative for confusion and hallucinations. Vitals: BP 112/72 (BP Site: Left Arm, BP Position: Sitting, BP Cuff Size: Regular Adult) Pulse 65 Ht 170.2 cm (5' 7 ) Wt 88.5 kg (195 lb) BMI 30.54 kg/m? PHYSICAL EXAMINATION: BP 112/72 (BP Site: Left Arm, BP Position: Sitting, BP Cuff Size: Regular Adult) Pulse 65 Ht 170.2 cm (5' 7 ) Wt 88.5 kg (195 lb) BMI 30.54 kg/m? Last 3 Encounter BP Readings: Date: BP: 02/20/2022 118/82 02/21/2021 122/78 02/20/2020 123/73 Last 3 Encounter Pulse Readings: Date: Pulse: 02/20/2022 60 02/21/2021 64 02/20/2020 63 Last 3 Encounter Wt Readings: Date: Wt: 02/20/2022 85.3 kg (188 lb) 02/21/2021 85.7 kg (189 lb) 02/20/2020 83.9 kg (185 lb) Physical Exam Vitals reviewed. Constitutional: General: She is not in acute distress. Appearance: Normal appearance. HENT: Head: Normocephalic. Right Ear: External ear normal. Left Ear: External ear normal. Nose: Nose normal. Mouth/Throat: Mouth: Mucous membranes are moist. Eyes: Extraocular Movements: Extraocular movements intact. Cardiovascular: Rate and Rhythm: Normal rate and regular rhythm. Pulses: Normal pulses. Carotid pulses are 2+ on the right side and 2+ on the left side. Radial pulses are 2+ on the right side and 2+ on the left side. Posterior tibial pulses are 2+ on the right side and 2+ on the left side. Heart sounds: Normal heart sounds. No murmur heard. Pulmonary: Effort: Pulmonary effort is normal. Breath sounds: Normal breath sounds. Abdominal: General: Abdomen is flat. Bowel sounds are normal. Palpations: Abdomen is soft. Tenderness: There is no abdominal tenderness. Musculoskeletal: General: Normal range of motion. Cervical back: (more content not included)... [facility] 02-13-2023 Miscellaneous Notes Spoke with patient and let her know per Joy Adorno CNP, stress test results will be discussed at appointment next week. Will discuss at upcoming apt Patient is calling about her echo results from 02/06. Patient is scheduled for a 1 year follow up next week with Dr Lewis Please advise documented in this encounter [facility] 02-06-2023 Note HNO ID: [id number] Author: Rhett Lewis, DO Service: ? 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 provider found Indication for Study: Syncope and collapse Maximum heart rate: 32 strips sent to us maximum heart rate 133 Minimum heart rate: Minimum heart rate 50 average heart rate 72 Ventricular arrhythmias: 3% Atrial arrhythmias: 0% Pauses: No pauses greater than 2.5 seconds Rhythm strip review: Reviewed rhythm strips demonstrate underlying sinus rhythm excellent heart rate variability 1. January 03 at 1554 short of breath sinus 108 2. January 06 at the time of 948 sinus PVC associated with lightheadedness 3. January 01 at the time 11:00 9 beat run of a wide-complex rhythm asymptomatic at a rate of 140 January 10 at time of 2202 sinus with PVCs asymptomatic It should be noted that this monitor is capable of making automatic recordings for bradycardia, tachycardia, or even atrial fibrillation with a controlled ventricular response. There were no recordings of atrial fibrillation documented. Current Outpatient Medications: losartan (COZAAR) 50 mg tablet, Take 1 tablet by mouth once daily., Disp: 90 tablet, Rfl: 0 simvastatin (ZOCOR) 40 mg tablet, TAKE 1 TABLET BY MOUTH EVERY DAY IN THE EVENING, Disp: 90 tablet, Rfl: 3 metoprolol succinate ER (TOPROL XL) 25 mg 24 hr tablet, TAKE 1/2 TABLET BY MOUTH EVERY DAY, Disp: 45 tablet, Rfl: 3 Cholecalciferol, Vitamin D3, 50 mcg (2,000 unit) cap, Take 1 capsule by mouth once daily., Disp: , Rfl: multivitamin tablet, Take 1 tablet by mouth once daily., Disp: , Rfl: aspirin, enteric coated (ECOTRIN LOW STRENGTH) 81 mg EC tablet, Take 1 tablet by mouth once daily., Disp: , Rfl: No current facility-administered medications for this visit. SUMMARY: Patient completed event monitor secondary to syncope and collapse. Underlying sinus rhythm was noted ranging 50-1 33 average heart rate 72. Occasional PVCs noted 1 9 beat run of a wide-complex rhythm was noted rate 133 this occurred on January 01 at the time of 11:00. Patient came in on Toprol 12.5 mg daily. With a wide-complex the patient was scheduled stress test and echocardiogram. This only had 1 occurrence Rhett Lewis DO February 05, 2023 [facility] 01-31-2023 History of Presen t illness Narrative Images from the original note were not included. [facility] [address] [facility] [id number] Dept: [phone] Dept 01/31/2023 Chief Complaint Patient presents with New Patient Right index finger mucous cyst HPI Ramirez Mario is a 67 y.o. right handed female that presents for evaluation of mass in her RIGHT Index finger and right middle finger DIP joints Symptoms have been present for 10 year(s) in the index finger and worsening over the last year for the right middle finger. Previous Treatments NSAIDs: Yes - Not Helpful Injection/Aspiration: Yes - Aspiration by Quality Control Operator 2 months ago, prior to that she has aspirated 3-5x yearly over the last 5 years Therapy: No - Has not attempted formal therapy Splinting: No - Has not tried any splinting Surgery: No - Has not had previous surgery on the symptomatic extremity MRI: No Has not had an MRI Index fingers no deformity. Has drained numerous times in the past. No results found for: HGBA1C No past surgical history on file. No past medical history on file. Allergies Allergen Reactions Sulfa Antibiotics Other reaction(s): hives, Unknown Current Outpatient Medications Medication Sig Dispense Refill aspirin 81 MG EC tablet Take 81 mg by mouth daily. cholecalciferol (Vitamin D-3) 50 MCG (1999 UT) capsule Take 1 capsule by mouth in the morning. losartan (Cozaar) 50 MG tablet Take 50 mg by mouth daily. meloxicam (Mobic) 15 MG tablet TAKE 1 TABLET BY MOUTH EVERY DAY NEEDED FOR PAIN. TAKE TYLENOL FOR BREAKTHROUGH PAIN metoprolol succinate XL (Toprol-XL) 25 MG 24 hr tablet Take 12.5 mg by mouth daily. simvastatin (Zocor) 40 MG tablet Take 40 mg by mouth every evening. No current facility-administered medications for this visit. OBJECTIVE BP 124/72 Ht 5' 7 (1.702 m) Wt 180 lb (81.6 kg) BMI 28.19 kg/m Ortho Exam RIGHT Upper Extremity See clinical images. Significant nail deformity index finger. Slight groove middle finger. 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 No expressible drainage or warmth. Clinical Photo (if obtained at office visit): Yes Skin: Intact without any evidence of breakdown Edema: Surrounding the mass ROM: full ROM throughout Motor: intact in the hand - able to fire AIN, PIN, and Ulnar nerves Sensation: to light touch normal in the median, ulnar, and radial nerve distributions Perfusion: Brisk cap refill to all digits IMAGING Plain films were taken today and reviewed in office. RIGHT Index Finger 2V arthrosis DIP joints index and middle PROCEDURE none ASSESSMENT (M67.441) Digital mucous cyst of finger of right hand (M67.441) Digital mucous cyst of finger of right hand 1. Digital mucous cyst of finger of right hand XR fingers 2+ views right Index finger 2. Digital mucous cyst of finger of right hand XR fingers 2+ views right Middle finger PLAN I discussed with Ramirez the natural history, expected outcome, and risks/benefits of both operative and nonoperative management of her particular diagnosis relative to her age, activity level, previous treatment, and physical exam. Ramirez had some excellent questions, all of which were answered to her satisfaction. Ramirez has longstanding painful mucous cyst that are now causing deformities of her index and middle fingers. She understands she has arthritis. I would not recommend injections. We discussed conservative care to include benign neglect versus operative cyst excision with DIP joint debridement. I went over the risks of infection, recurrence, stiffness, as well as inherent risks of anesthesia. For the time being she wants to continue with conservative care but states that she would likely pursue surgery after summer. She knows she can be scheduled over the phone. I had an extensive discussion with Ms. Ramirez Mario regarding the natural history, etiology, and [facility] consequences of her condition. We discussed both operative and non operative treatment options and Ramirez Mario elected to proceed with surgical intervention. I have discussed with Ms. Ramirez Mario the potential complications, limitations, expectations, alternatives, and risks of the proposed surgical procedure. Risks discussed include but are not limited to the risk of infection, iatrogenic injury to normal neurovascular structures, persistent pain and disability, unsightly scar, stiffness, complex regional pain syndrome, malunion, non union, hardware failure, need for hardware removal, loss of limb, myocardial infarction, deep vein thrombosis, pulmonary embolism and even . We also discussed the potential risk of COVID-19 exposure or infection and how it could alter her post operative recovery course. She has had full opportunity to ask her questions. I have answered them all to her satisfaction. I feel that Ms. Ramirez Mario does understand our discussion today and she is comfortable providing informed consent for the procedure. Follow-up: Ramirez will followup with me on an as needed basis. She knows to call the office with any questions or concerns in the interim. Future Imaging: NONE Bebo Boggs MD Hand and Upper Extremity Surgery [facility] Department of Orthopaedics and Sports Medicine 01/31/2023 at 1:16 PM (Please note that portions of this note may have been completed with a voice recognition program. Efforts were made to edit the dictations but occasionally words are mis-transcribed.) documented in this encounter [facility] 01-10-2023 Miscellaneous Notes Called patient and relayed message, patient voiced understanding. Cristobal prince MA ----- Message from Rhett Lewis DO sent at 01/09/2023 6:24 PM EDT ----- Please call the patient and inform them stress test is normal. The strength is normaL. documented in this encounter [facility] 01-05-2023 Miscellaneous Notes Spoke with patient and relayed date, times, and instructions for upcoming testing. Patient voiced understanding. Charlotte Rivas January 05, 2023 8:19 AM Left messages on patient's home phone and cell phone asking her to return the call Scheduled stress and echo at [facility] Stress is 01/09 at 630 am Nothing to eat,drink or smoke after midnight. May take morning meds with small sips of water Patient must register at [phone] option 2 Echo is scheduled at [facility] 02/06 at 7 am Left message asking patient to return the call Orders faxed No auth required for Medicare and Medicare supplement Clyde Middleton Prior authorization request for stress test to be done at [facility] is being submitted for review. Please notify clerical staff when ready. Prior authorization request for Echo to be done at [facility] is being submitted for review. Please notify clerical staff when ready. Sheila Shaffer RN documented in this encounter [facility] 01-03-2023 Miscellaneous Notes Please sign orders. 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 Spoke to patient and let her know Dr Lewis wants to order a stress test and Echo. Patient agreeable. documented in this encounter [facility] 12-29-2022 Note HNO ID: [id number] Author: Dru Jones MA Service: ? Author Type: Business Agent Type: Progress Notes Filed: 01/16/2023 4:20 PM Note Text: Applied Monitor at this visit. Explained all procedures and instructions. Patient agreeable and voiced understanding. [facility] 12-27-2022 Miscellaneous Notes Patient scheduled to come in for monitor Sunday With low ef passing out is most likely irregulkar heart beats Should have monoitor for 30 days Do you have anything else to add? Patient stated she was cleaning someone's house at the time of the episode. She did not pass out but just felt very lightheaded. Has not happened since. Encouraged her to drink fluids for hydration, monitor and let us know if it happens again. Patient calls today. Reason for Call: Patient stated over weekend she had an episode were she also passed out. She checked BP and sugar and they were normal. She is asking if she needs seen or have an EKG done. Please advise [phone] (cell) Patient last appointment: 02/20/22 Charlotte Rivas documented in this encounter [facility] 11-30-2022 Miscellaneous Notes Has requested refills too soon. Pharmacy faxes requesting refill: Requested Prescriptions Refused Prescriptions Disp Refills losartan (COZAAR) 50 mg tablet [Pharmacy Med Name: LOSARTAN POTASSIUM 50 MG TAB] 90 tablet 3 Sig: TAKE 1 TABLET BY MOUTH EVERY DAY Date of last visit:02/20/2022 Phone #: [phone] (home) [phone] (cell) The patients preferred pharmacy has been captured for this encounter? yes documented in this encounter [facility] 03-22-2022 Miscellaneous Notes Pharmacy faxes requesting refill: Pending Prescriptions Disp Refills SIMVASTATIN 40 MG TABLET 90 tablet 3 Sig: TAKE 1 TABLET BY MOUTH EVERY DAY IN THE EVENING RANDOLPH: Yes Date of last visit:02/20/2022 Phone #: [phone] (home) [phone] (cell) The patients preferred pharmacy has been captured for this encounter? yes documented in this encounter [facility] 03-13-2022 Miscellaneous Notes Pharmacy faxes requesting refill: Pending Prescriptions Disp Refills METOPROLOL SUCCINATE ER 25 MG TABLET,EXTENDED RELEASE 24 HR 45 tablet 3 Sig: TAKE 1/2 TABLET BY MOUTH EVERY DAY RANDOLPH: Yes Date of last visit:02/20/2022 Phone #: [phone] (home) [phone] (cell) The patients preferred pharmacy has been captured for this encounter? yes documented in this encounter [facility] 02-08-2022 Miscellaneous Notes Pharmacy faxes requesting refill: Pending Prescriptions Disp Refills LOSARTAN 50 MG TABLET 30 tablet 0 Sig: TAKE 1 TABLET BY MOUTH EVERY DAY RANDOLPH: Yes Future appointment 02/20/22, can get refills that day. Date of last visit:02/21/2021 Phone #: [phone] (home) [phone] (cell) The patients preferred pharmacy has been captured for this encounter? yes documented in this encounter [facility] 11-14-2021 Miscellaneous Notes Pharmacy faxes requesting refill: Pending Prescriptions Disp Refills SIMVASTATIN 40 MG TABLET 90 tablet 0 Sig: TAKE 1 TABLET BY MOUTH EVERY DAY IN THE EVENING RANDOLPH: Yes Date of last visit:02/21/21 Phone #: [phone] (home) [phone] (cell) The patients preferred pharmacy has been captured for this encounter? yes documented in this encounter [facility] 04-01-2015 History of Presen t illness Narrative DATE OF SERVICE: 02/20/2015 This 59-year-old female patient came to [facility] emergency department with a complaint of buttocks area rash where she states that she had insect bite when she was sitting outside a couple of days ago and she had some itching. It felt like insect bite type rash. Now she has large patchy area, left buttock cheek area and decided to come to [facility] for evaluation. She complains of itching in the area. She thinks the rash area has central demetrius. Denies any joint pain or swelling, any rash on other part of body. Denied any sore throat, fever, chills, cough, nausea, vomiting, or diarrhea. She is not sure about tetanus shot; however, she refused tetanus shot given and she understood risks and benefits of that. I did offer her a tetanus but she refused. It is actually recommended and she was told that she needs to have it updated within 74 hours. The patient said that she has had rash for more than 2 days and I am also questioning the validity of tetanus shot to be updated in 48 hours, but she will follow with primary care physician. She has history of arthritis and heart disease. Denies any chest pain, chest tightness, trouble breathing, trouble swallowing. She does not smoke. She drinks alcohol on a weekend basis. PHYSICAL EXAMINATION: On examination, she was pleasant, alert and cooperative. Temperature 98.2, pulse 56, respiratory rate 12, blood pressure 132/84, pulse ox 100% on room air. Her HEENT exam was unremarkable. Throat was intact. Airway clear. Ears clear. Neck is supple. Lungs are clear. No wheezing or rales noted. Heart is regular rate and rhythm, no murmur or rub. Abdomen soft and nontender. Further examination was done of the left buttock area with a female RN present in the room as a truck driver supervisor. Shows only a large patchy area of the buttock cheek on the left side, a central area of small puncture spots. There was no petechia, no ecchymosis, no fluctuant abscess, no red streak. No joint edema, erythema or other hip pain. Pelvis was stable, nontender. Cervical, thoracic and lumbar spine nontender. ASSESSMENT: Left buttock cheek area infected insect bite with allergic dermatitis and superimposed cellulitis. I put her on Keflex 500 mg p.o. t.i.d. for 7 days. I also put her on Kenalog cream. She was told if she needed tetanus she should come back, otherwise she should have it updated tomorrow as she preferred her primary care physician for tetanus shot. RHONDA/francia [id number] Julio César Coffey MD CC: Verified/Reviewed by 10/19/20 1729 [facility] PATIENT NAME: RAMIREZ MARIO [facility] Dr. Schmid MEDICAL REC #: [id number] [place] [address] [facility] documented in this encounter [facility] Evaluation + Plan note Future Appointments Appointment Date:12/30/2021 08:00:00 AM Scheduled Provider: Location:[facility] Appointment Type:PT Outpatient Evaluation [facility] Diagnosis Digital mucous cyst of finger of right hand [facility] Diagnosis Benign hypertension- Primary Essential hypertension, benign [facility] Narrative No data available for this section [facility] Hospital Discharge instructions No data available for this section [facility] Progress note No data available for this section [facility] Reason for referral (narrative)* Outpatient Procedure (Routine) - Pending Review Specialty Diagnoses / Procedures Referred By Jose t Referred To [facility] Diagnoses Syncope, unspecified syncope type Procedures ECHO ECHO TTHRC R-T 2D W/WOM-MODE COMPL SPEC&COLR D Rhett Lewis DO [address] [place] [id number] [facility] [address] [place] [address] Referral ID Status Reason Start Date Expiration Date Visits Requested Visits Authorized [id number] Pending Review Auto-Generat ed Referral 01/04/2023 01/03/2024 1 1 * Diagnostic Procedure Only (Routine) - Pending Review Specialty Diagnoses / Procedures Referred By Contact Referred To Contact [facility] Diagnoses Syncope, unspecified syncope type Abnormal electrocardiogram (ECG) (EKG) Procedures NM CARDIAC PERF STRESS/EXERCISE MYOCARDIAL SPECT MULTIPLE STUDIES Rhett Lewis DO [address] [place] [id number] [facility] [address] [place] [address] Referral ID Status Reason Start Date Expiration Date Visits Requested Visits Authorized [id number] Pending Review Auto-Generat ed Referral 01/04/2023 02/02/2024 1 1 [facility] Summary Purpose Family History No Family History Records FoundNo Family History Records FoundNo Family History Records FoundNo Family History Records FoundNo Family History Records Found Advance Directives No Advanced Directives Records FoundNo Advanced Directives Records FoundNo Advanced Directives Records FoundNo Advanced Directives Records FoundNo Advanced Directives Records Found Additional Source Comments Source Comments (unrecognize d section and content) In the event this informatio n is protected by the Federal Confidentiality of Alcohol and Drug Abuse Patient Records regulations: The Federal rules restrict any use of the information to criminally investigate or prosecute any alcohol or drug abuse patient.[facility] the event this information is protected by the Federal Confidentiality of Alcohol and Drug Abuse Patient Records regulations: The Federal rules restrict any use of the information to criminally investigate or prosecute any alcohol or drug abuse patient.[facility] the event this information is protected by the Federal Confidentiality of Alcohol and Drug Abuse Patient Records regulations: The Federal rules restrict any use of the information to criminally investigate or prosecute any alcohol or drug abuse patient.[facility] the event this information is protected by the Federal Confidentiality of Alcohol and Drug Abuse Patient Records regulations: The Federal rules restrict any use of the information to criminally investigate or prosecute any alcohol or drug abuse patient.[facility] the event this information is protected by the Federal Confidentiality of Alcohol and Drug Abuse Patient Records regulations: The Federal rules restrict any use of the information to criminally investigate or prosecute any alcohol or drug abuse patient.[facility] the event this information is protected by the Federal Confidentiality of Alcohol and Drug Abuse Patient Records regulations: The Federal rules restrict any use of the information to criminally investigate or prosecute any alcohol or drug abuse patient.[facility] the event this information is protected by the Federal Confidentiality of Alcohol and Drug Abuse Patient Records regulations: The Federal rules restrict any use of the information to criminally investigate or prosecute any alcohol or drug abuse patient.[facility] the event this information is protected by the Federal Confidentiality of Alcohol and Drug Abuse Patient Records regulations: The Federal rules restrict any use of the information to criminally investigate or prosecute any alcohol or drug abuse patient.[facility] the event this information is protected by the Federal Confidentiality of Alcohol and Drug Abuse Patient Records regulations: The Federal rules restrict any use of the information to criminally investigate or prosecute any alcohol or drug abuse patient.[facility] the event this information is protected by the Federal Confidentiality of Alcohol and Drug Abuse Patient Records regulations: The Federal rules restrict any use of the information to criminally investigate or prosecute any alcohol or drug abuse patient.[facility] the event this information is protected by the Federal Confidentiality of Alcohol and Drug Abuse Patient Records regulations: The Federal rules restrict any use of the information to criminally investigate or prosecute any alcohol or drug abuse patient.[facility] Hospital[facility] the event this information is protected by the Federal Confidentiality of Alcohol and Drug Abuse Patient Records regulations: The Federal rules restrict any use of the information to criminally investigate or prosecute any alcohol or drug abuse patient.[facility] Hospital[facility] the event this information is protected by the Federal Confidentiality of Alcohol and Drug Abuse Patient Records regulations: The Federal rules restrict any use of the information to criminally investigate or prosecute any alcohol or drug abuse patient.[facility] Hospital[facility] the event this information is protected by the Federal Confidentiality of Alcohol and Drug Abuse Patient Records regulations: The Federal rules restrict any use of the information to criminally investigate or prosecute any alcohol or drug abuse patient.[facility] the event this information is protected by the Federal Confidentiality of Alcohol and Drug Abuse Patient Records regulations: The Federal rules restrict any use of the information to criminally investigate or prosecute any alcohol or drug abuse patient.[facility] Reason for Visit (unrecogniz ed section and content) Reason Comments Patient Update Reason Comments Patient Question Reason Comments PA for Stress test/echo Reason Comments Results Stress test Reason Comments New Patient Right index finger m ucous cyst Reason Comments Results Care Teams (unrecognized sec tion and content) Machine Former Relationship Specialty Start Date End Date Luis Eduardo Watts DO PCP - General Family Practice 03/10/15 Machine Former Relationship Specialty Start Date End Date Luis Eduardo Watts DO PCP - General Family Practice 03/10/15 Machine Former Relationship Specialty Start Date End Date Luis Eduardo Watts DO PCP - General Family Medicine 03/10/15 Machine Former Relationship Specialty Start Date End Date Luis Eduardo Watts DO PCP - General Family Medicine 03/10/15 Machine Former Relationship Specialty Start Date End Date Luis Eduardo Watts DO PCP - General Family Medicine 03/10/15 Machine Former Relationship Specialty Start Date End Date Luis Eduardo Watts DO PCP - General Family Medicine 03/10/15 Machine Former Relationship Specialty Start Date End Date Luis Eduardo Watts DO PCP - General Family Medicine 03/10/15 Machine Former Relationship Specialty Start Date End Date Luis Eduardo Watts [address] [place] [address] PCP - General Family Medicine 01/31/23 Machine Former Relationship Specialty Start Date End Date Luis Eduardo Watts DO PCP - General Family Medicine 03/10/15 Machine Former Relationship Specialty Start Date End Date Luis Eduardo Watts DO PCP - General Family Medicine 03/10/15 Machine Former Relationship Specialty Start Date End Date Luis Eduardo Watts DO PCP - General Family Medicine 03/10/15 Care Team (unrecognized sect ion and content) Care Team Personnel Name: LUIS EDUARDO WATTS DO Member Role: Primary Care Physician Address: Address: [facility] [address] [place] [address]- Care Team Related Persons Name: NIA MARIO Address: Home [address] [place] [id number] [place] INFORMATION SOURCE (unrecogn ized section and content) DATE CREATED AUTHOR AUTHOR'S ORGANIZ ATION 02/05/2023 [facility] DATE CREATED AUTHOR AUTHOR'S ORGANIZ ATION 02/13/2023 [facility] DATE CREATED AUTHOR AUTHOR'S ORGANIZ ATION 02/22/2023 [facility] DATE CREATED AUTHOR AUTHOR'S ORGANIZ ATION 09/03/2023 [facility] FOR RECORDS PERTAINING TO PATIENTS WHO ARE OR HAVE BEEN ENROLLED IN A CHEMICAL DEPENDENCY/SUBSTANCEABUSE PROGRAM, SOME INFORMATION MAY BE OMITTED. This clinical summary was aggregated from multiple sources. Caution should be exercised in using it in the provision of clinical care. This summary normalizes information from multiple sources, and as a consequence, information in this document may materially change the coding, format and clinical context of patient data. In addition, data may be omitted in some cases. CLINICAL DECISIONS SHOULD BE BASED ON THE PRIMARY CLINICAL RECORDS. [employer] [facility]. provides no warranty or guarantee of the accuracy or completeness of information in this document.
== END | disposition home or self-care (01) ==
LOC: MTRAD 16:01
PROVIDERS: PCP Family Medicine; Referring Provider Family Medicine; Visit Provider Family Medicine
DX: M25.551 Pain in right hip (principal)
CPT/HCPCS: 73502

== ENCOUNTER → 2023-09-11 | Outpatient (CLI) | payer MEDICARE, OTHER, SELFPAY ==
[2023-09-11 15:51] LABS: Absolute Lymphocyte Count 0.71 X10^3/uL (0.83-4.51); Absolute Neutrophil Count 8.2 X10^3/uL (2.0-7.7); Basophil# 0.03 X10^3/uL; Basophil% 0.3 % (0-1); Eosinophil# 0.03 X10^3/uL; Eosinophils% 0.3 % (0-5); Hematocrit 41.3 % (37-47); Hemoglobin 13.1 g/dL (12.0-15.0); Lymphocyte # 0.71 X10^3/ul (0.83-4.51); Lymphocyte % 7.8 % (19-41); Mean Corp Hgb Conc 31.7 g/dL (32-36); Mean Corpuscular Hgb 31.3 pg (27.0-32.0); Mean Corpuscular Volume 98.6 fL (81-99); Mean Platelet Vol. 11.9 fl (6.2-12.0); Monocyte% 1.1 % (0-10); NRBC Flagged by Analyzer 0 % (0-5); Neutrophil # 8.17 X10^3/uL (2.7-7.7); Neutrophil % 90.1 % (47-70); Platelet Count 318 K/mm3 (150-450); RBC Distribution Width CV 12.8 % (11.6-14.6); RBC Distribution Width SD 45.9 fl (35.1-43.9); Red Blood Count 4.19 M/mm3 (4.2-5.4); White Blood Count 9.1 K/mm3 (4.4-11.0)
--- OUTSIDE RECORDS SUMMARY | 2023-09-11 16:13 | XMS RPT_ITS | CCD ---
Author Name Unknown Address [address] [place] [address] Organization [facility] Care Team Providers Care Control Cabinet Assembler Name Role Phone Luis Eduardo Watts DO Primary Care Provider LUIS EDUARDO WATTS DO Primary Care Physician MARIAN CARDOSO Attending Unavailable BROWN, LUIS EDUARDO R Primary Care Unavailable MARIAN CARDOSO Referring Unavailable BROWN LUIS EDUARDO R Primary Care Unavailable MARIE DIMAS Attending MARIE Mullins Referring Denisavakalie Watts DO Luis Eduardo R Primary Care Provider Luis Eduardo Watts R Primary Care Provider [phone] BEBO BOGGS Attending Unavailable BROWN, LUIS EDUARDO [...] to adverse reactions to drug 9 Unknown [facility] Work Phone: (2 sources) Sulfamethoxazole; Translations: [sulfamethoxazole ] Drug Allergy [facility] Medications Current Medications Medication Drug Class(es) Dates [...] Coronary arteriosclerosis; Translations: [Atherosclerotic heart disease of [place] coronary artery without angina pectoris] 02-19-2020 Chronic Disorders of lipid metabolism (16 sources) Mixed hyperlipidemia; Translations: [Mixed hyperlipidemia] Onset: 0 02-19-2020 Chronic Essential hypertension (18 sources) Benign hypertension; Translations: [Essential (primary) hypertension] Onset: 0 02-19-2020 Chronic Other aftercare (1 source) Long-term current use of drug therapy; Translations: [Other correction (current) drug therapy] Episodic Other aftercare (1 [...] 170.2 cm Bebo Boggs MD Work Phone: [facility] [employer] 01-31-2023 13:01-0400 Body mass index (BMI) [Ratio] 28.19 kg/m2 Bebo Boggs MD Work Phone: [facility] [employer] 01-31-2023 13:01-0400 Body weight 81.65 kg Bebo Boggs MD Work Phone: [facility] [employer] 01-31-2023 13:01-0400 Diastolic blood pressure 72 mm[Hg] Bebo Boggs MD Work Phone: [facility] [employer] 01-31-2023 13:01-0400 Systolic blood pressure 124 mm[Hg] Bebo Boggs MD Work Phone: [facility] [employer] Encounters Encounter Date Encounter Type Care Provider Facility Start: 08-29-2023 End: 08-29-2023 ambulatory LUIS EDUARDO WATTS Facility:[id number] Start: 03-15-2023 Refill Rhett caro DO Work Phone: [facility] Procedures Date Procedure Procedure Detail Performing [...] 02-20-2024 BP CONTROLLED (<130/80) BP CONTROLLED (<130/80) [facility] in Start: 08-30-2023 Screening for malignant neoplasm of breast Mammogram [facility] Start: 04-27-2023 Influenza vaccination [facility] Start: 2022 ADVANCE DIRECTIVE DISCUSSION ADVANCE DIRECTIVE DISCUSSION [facility] Start: 2022 BONE DENSITY BONE DENSITY [facility] Start: 2022 Bone Density Screening Bone Density Screening [facility] Start: 2022 Pneumococcal Vaccine: 65+ Years (1 - PCV) Pneumococcal Vaccine: 65+ Years (1 - PCV) [facility] Start: 08-27-2022 DEPRESSION ASSESSMENT DEPRESSION ASSESSMENT [facility] Start: 04-27-2022 Influenza vaccination [facility] Start: 02-21-2022 BP CONTROLLED (<130/80) BP CONTROLLED (<130/80) [facility] Start: 04-27-2021 Influenza vaccination INFLUENZA (#1) [facility] Start: 2007 SHINGRIX VACCINE (1 of 2) SHINGRIX VACCINE (1 of 2) [facility] Start: 2007 Zoster Vaccines (1 of 2) Zoster Vaccines (1 of 2) [facility] Start: 2002 COLOGUARD (FIT-DNA) COLOGUARD (FIT-DNA) [facility] Start: 2002 Colonoscopy COLONOSCOPY [facility] Start: 2002 COLORECTAL CANCER SCREENING COLORECTAL CANCER SCREENING [facility] Start: [address] COLONOGRAPHY [facility] Start: 2002 DIABETES SCREEN DIABETES SCREEN [facility] Start: 2002 Diabetes Screening Diabetes Screening [facility] Start: 2002 FECAL OCCULT BLOOD FECAL OCCULT BLOOD [facility] Start: 2002 Lipid 1996 panel - Serum or Plasma Lipid Screening [facility] Start: 2002 LIPID SCREEN LIPID SCREEN [facility] Start: 2002 SIGMOIDOSCOPY SIGMOIDOSCOPY [facility] Start: 1997 Mammography [facility] Start: 1987 HPV TESTING HPV TESTING [facility] Start: 1987 Screening for malignant neoplasm of cervix [facility] Start: 1978 PAP TESTING PAP TESTING [facility] Start: 1978 Screening for malignant neoplasm of cervix Pap Smear [facility] Start: 1976 [facility] Start: 1975 ANNUAL PCP TEAM CHRONIC DISEASE VISIT ANNUAL PCP TEAM CHRONIC DISEASE VISIT [facility] Start: 1975 BP CONTROLLED (<130/80) BP CONTROLLED (<130/80) [facility] Start: 1975 Diabetes mellitus screening Diabetes Screening [facility] Start: 1975 Hepatitis B surface antibody level LDL CHOLESTEROL [facility] Start: 1975 HEPATITIS C SCREENING HEPATITIS C SCREENING [facility] Start: 1975 Hepatitis C screening Hepatitis C Screening [facility] Start: 1975 HIV SCREENING HIV SCREENING [facility] Start: 1969 Adult depression screening assessment DEPRESSION SCREENING [facility] Start: 1964 DTaP/Tdap/Td Vaccines (1 - Tdap) DTaP/Tdap/Td Vaccines (1 - Tdap) [facility] Start: 1963 PNEUMOCOCCAL (1 - PCV) PNEUMOCOCCAL (1 - PCV) [facility] Start: 1963 Pneumococcal Vaccine: 65+ (1 - PCV) Pneumococcal Vaccine: 65+ (1 - PCV) [facility] Start: 1963 PNEUMOCOCCAL: 65+ (1 - PCV) PNEUMOCOCCAL: 65+ (1 - PCV) [facility] Start: 1962 COVID-19 VACCINE (#1) COVID-19 VACCINE (#1) [facility] Start: 1962 COVID-19 VACCINE (1) COVID-19 VACCINE (1) [facility] Start: 1958 MMR Vaccines (1 of 1 - Standard series) MMR Vaccines (1 of 1 - Standard series) [facility] Start: 02-25-1958 COVID-19 VACCINE (#1) COVID-19 VACCINE (#1) [facility] Start: 1957 Annual wellness visit Medicare Initial Physical (IPPE) [facility] Start: 1957 Creatinine measurement Creatinine Level [facility] Start: 1957 Echocardiography Echocardiogram [facility] Start: 1957 Lipid panel Lipid Panel [facility] Start: 1957 Medicare Annual Wellness (AWV) Medicare Annual Wellness (AWV) [facility] Start: 1957 Potassium measurement Potassium Level [facility] Start: 1957 Screening for malignant neoplasm of colon [facility] Start: 1957 Screening for osteoporosis Bone Density Scan [facility] End: 01-04-2024 Echocardiography ECHO Cardiology Routine Syncope, unspecified syncope type 1 Occurrences starting 01/04/2023 until 01/04/[address] [facility] Work Phone: Payers Date Payer Category Payer Medicare [id number] 2022 Unknown [id number] 2021 Unknown [id number] 2019 Medicare [id number] 2019 Unknown ANTHEM BLUE CROS S AND BLUE SHIELD ANTHEM MEDIBLUE HMO [id number] 2019-Present [phone] [address] [place] [address] HMO [id number] 2019 Unknown [id number] 2017 Medicare [id number] 2012 Unknown [employer]M BLUE CARD PPO OOS [id number] 2012-2019 [address] [place] [address] PPO [id number] 1957 Unknown [id number] 1957 Unknown [id number] Unknown [id number] Unknown [id number] Social History Date Type Detail Facility Start: 02-21-2021 End: 02-19-2023 Tobacco smoking status NHIS Never smoked tobacco [facility] Start: 02-21-2021 End: 02-19-2023 Tobacco use and exposure Smokeless tobacco non-user [facility] Start: 02-21-2021 End: 01-09-2023 Alcohol intake Current drinker of alcohol (finding) [facility] Start: 02-21-2021 History SDOH Alcohol Comment couple times a week [facility] Start: 1955 Sex Assigned At Female C [facility] Work Phone: Sex Assigned At Sex [facility] Tobacco smoking status NHIS Tobacco smoking consumption unknown [facility] Start: 01-22-2021 End: 01-31-2023 Exposure to SARS-CoV-2 (event) Not sure [facility] Start: 12-29-2022 End: 01-31-2023 History of Social function [facility] Start: 12-29-2022 End: 01-31-2023 Tobacco use panel [facility] Start: 1955 Sex Assigned At Not on file S [facility] National Score (1-100), lower number is lower risk 73 [facility] Start: 02-19-2020 Gender identity Identifies as female gender (finding) [facility] Work Phone: Functional Status Date Assessment [...] Cervical AROM: no ROM provokes shoulder symptoms [facility] 11-18-2021 Functional Status [facility] Clinical Notes 04-01-2015 to 08-29-2023 Telephone Encounter - Manju Becker Ginger - 03/15/2023 6:52 AM EDTTelephone Encounter - Manju BeckerGinger - 02/28/2023 8:51 AM EDTTelephone Encounter - Eusebio Solomon - 02/26/2023 8:49 AM EDT Note Date & Type Note Facility 08-29-2023 Note HNO ID: [id number] Author: RHETT LEWIS, DO Service: ? Author [...] (HCC) H/O echocardiogram 04/23/2018 EF 50%, mild-mod ND, trace TR History of cardiac cath 10/21/2009 Minimal non obstructive CAD by cardia cath at [place] History of cardiac catheterization 2009 min cad [...] block) Mixed hyperlipidemia NSVT (nonsustained ventricular tachycardia) ([facility]) 2022 By 2009 event monitor and in [...] No edema. Skin: (more content not included)... [facility] 03-15-2023 Miscellaneous Notes Pharmacy faxes requesting refill: Requested Prescriptions Pending Prescriptions Disp Refills simvastatin (ZOCOR) 40 mg tablet [Pharmacy Med Name: SIMVASTATIN 40 MG TABLET] 90 tablet 3 Sig: TAKE 1 TABLET BY MOUTH EVERY DAY IN THE EVENING Date of last visit:02/19/2023 Phone #: [phone] (home) [phone] (cell) The patients preferred pharmacy has been captured for this encounter? yes documented in this encounter [facility] 02-28-2023 Miscellaneous Notes Pharmacy faxes requesting refill: Requested Prescriptions Pending Prescriptions Disp Refills metoprolol succinate ER (TOPROL XL) 25 mg 24 hr tablet [Pharmacy Med Name: METOPROLOL SUCC ER 25 MG TAB] 45 tablet 3 Sig: TAKE 1/2 TABLET BY MOUTH EVERY DAY Date of last visit:02/19/23 Phone #: [phone] (home) [phone] (cell) The patients preferred pharmacy has been captured for this encounter? yes documented in this encounter [facility] 02-26-2023 Miscellaneous Notes Pharmacy faxes requesting refill: Requested Prescriptions Pending Prescriptions Disp Refills losartan (COZAAR) 50 mg tablet [Pharmacy Med Name: LOSARTAN POTASSIUM 50 MG TAB] 90 tablet 3 Sig: TAKE 1 TABLET BY MOUTH EVERY DAY Date of last visit:02/19/2023 Phone #: [phone] (home) [phone] (cell) The patients preferred pharmacy has been captured for this encounter? yes documented in this encounter [facility] 02-19-2023 Note HNO ID: [id number] Author: Rhett Lewis DO Service: ? Author [...] (HCC) H/O echocardiogram 04/23/2018 EF 50%, mild-mod ND, trace TR History of cardiac cath 10/21/2009 Minimal non obstructive CAD by cardia cath at [place] History of cardiac catheterization 2009 min cad [...] motion. Cervical back: (more content not included)... [facility] 02-13-2023 Miscellaneous Notes Spoke with patient and let her know per Joy Adorno CNP, stress test results will be discussed at appointment next week. Will discuss at upcoming apt Patient is calling about her echo results from 02/06. Patient is scheduled for a 1 year follow up next week with Dr Lewis Please advise documented in this encounter [facility] 02-06-2023 Note HNO ID: [id number] Author: Rhett Lewis, DO Service: ? 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 [facility] [address] [place] [address] [facility] [address] Dept: [phone] Dept 01/31/2023 Chief Complaint Patient presents with [...] Not Helpful Injection/Aspiration: Yes - Aspiration by Director Of Patient Safety 2 months ago, prior to that she [...] Mario regarding the natural history, etiology, and intermediate frame tender consequences of her condition. We discussed both [...] Boggs MD Hand and Upper Extremity Surgery [facility] Department of Orthopaedics and Sports Medicine 01/31/2023 at 1:16 PM (Please note that portions of this note may have been completed with a voice recognition program. Efforts were made to edit the dictations but occasionally words are mis-transcribed.) documented in this encounter [facility] 01-10-2023 Miscellaneous Notes Called patient and relayed message, patient voiced understanding. Cristobal prince MA ----- Message from Rhett Lewis DO sent at 01/09/2023 6:24 PM EDT ----- Please call the patient and inform them stress test is normal. The strength is normaL. documented in this encounter [facility] 01-05-2023 Miscellaneous Notes Spoke with patient [...] sips of water Patient must register at [phone] option 2 Echo is scheduled at [facility] [...] Sheila Shaffer RN documented in this encounter [facility] 01-03-2023 Miscellaneous Notes Please sign orders. Patient wearing speech lang path therapist for syncope and on 01/01/23 she had a 9 beat run of v-tach with rate of 133 bpm. Spoke to patient and let her know Dr Lewis wants to order a stress test and Echo. Patient agreeable. documented in this encounter [facility] 12-29-2022 Note HNO ID: [id number] Author: Dru Jones MA Service: ? Author Type: Wharf Labourer Type: Progress Notes Filed: 01/16/2023 4:20 PM Note Text: Applied Monitor at this visit. Explained all procedures and instructions. Patient agreeable and voiced understanding. [facility] 12-27-2022 Miscellaneous Notes Patient scheduled to come [...] or have an EKG done. Please advise [phone] (cell) Patient last appointment: 02/20/22 Charlotte Rivas documented in this encounter [facility] 11-30-2022 Miscellaneous Notes Has requested refills too soon. Pharmacy faxes requesting refill: Requested Prescriptions Refused Prescriptions Disp Refills losartan (COZAAR) 50 mg tablet [Pharmacy Med Name: LOSARTAN POTASSIUM 50 MG TAB] 90 tablet 3 Sig: TAKE 1 TABLET BY MOUTH EVERY DAY Date of last visit:02/20/2022 Phone #: [phone] (home) [phone] (cell) The patients preferred pharmacy has been captured for this encounter? yes documented in this encounter [facility] 03-22-2022 Miscellaneous Notes Pharmacy faxes requesting refill: Pending Prescriptions Disp Refills SIMVASTATIN 40 MG TABLET 90 tablet 3 Sig: TAKE 1 TABLET BY MOUTH EVERY DAY IN THE EVENING RANDOLPH: Yes Date of last visit:02/20/2022 Phone #: [phone] (home) [phone] (cell) The patients preferred pharmacy has been captured for this encounter? yes documented in this encounter [facility] 03-13-2022 Miscellaneous Notes Pharmacy faxes requesting refill: Pending Prescriptions Disp Refills METOPROLOL SUCCINATE ER 25 MG TABLET,EXTENDED RELEASE 24 HR 45 tablet 3 Sig: TAKE 1/2 TABLET BY MOUTH EVERY DAY RANDOLPH: Yes Date of last visit:02/20/2022 Phone #: [phone] (home) [phone] (cell) The patients preferred pharmacy has been captured for this encounter? yes documented in this encounter [facility] 02-08-2022 Miscellaneous Notes Pharmacy faxes requesting refill: Pending Prescriptions Disp Refills LOSARTAN 50 MG TABLET 30 tablet 0 Sig: TAKE 1 TABLET BY MOUTH EVERY DAY RANDOLPH: Yes Future appointment 02/20/22, can get refills that day. Date of last visit:02/21/2021 Phone #: [phone] (home) [phone] (cell) The patients preferred pharmacy has been captured for this encounter? yes documented in this encounter [facility] 11-14-2021 Miscellaneous Notes Pharmacy faxes requesting refill: Pending Prescriptions Disp Refills SIMVASTATIN 40 MG TABLET 90 tablet 0 Sig: TAKE 1 TABLET BY MOUTH EVERY DAY IN THE EVENING RANDOLPH: Yes Date of last visit:02/21/21 Phone #: [phone] (home) [phone] (cell) The patients preferred pharmacy has been captured for this encounter? yes documented in this encounter [facility] 04-01-2015 History of Presen t illness Narrative DATE OF SERVICE: 02/20/2015 This 59-year-old female patient [facility] with a complaint of buttocks area rash [...] RN present in the room as a lunchroom operator. Shows only a large patchy area of [...] primary care physician for tetanus shot. RHONDA/francia [id number] Julio César Coffey MD CC: Verified/Reviewed by 10/19/20 1729 [facility] PATIENT NAME: RAMIREZ MARIO [facility] Schmid MEDICAL REC #: [id number] [place] [address] [place] [facility] documented in this encounter [facility] Evaluation + Plan note Future Appointments Appointment Date:12/30/2021 08:00:00 AM Scheduled Provider: Location:[facility] Appointment Type:PT Outpatient Evaluation [facility] Diagnosis Digital mucous cyst of finger of right hand [facility] Diagnosis Benign hypertension- Primary Essential hypertension, benign [facility] Narrative No data available for this section [facility] Hospital Discharge instructions No data available for this section [facility] Progress note No data available for this section [facility] Reason for referral (narrative)* Outpatient Procedure (Routine) - Pending Review Specialty Diagnoses / Procedures Referred By Jose t Referred To Contact [facility] Diagnoses Syncope, unspecified syncope type Procedures ECHO ECHO TTHRC R-T 2D W/WOM-MODE COMPL SPEC&COLR D Rhett Lewis DO [address] [place] [address] [facility] [address] [place] [address] Referral ID Status Reason Start Date Expiration Date Visits Requested Visits Authorized [id number] Pending Review Auto-Generat ed Referral 01/04/2023 01/03/2024 1 1 * Diagnostic Procedure Only (Routine) - Pending Review Specialty Diagnoses / Procedures Referred By Contact Referred To Contact [facility] Diagnoses Syncope, unspecified syncope type Abnormal electrocardiogram (ECG) (EKG) Procedures NM CARDIAC PERF STRESS/EXERCISE MYOCARDIAL SPECT MULTIPLE STUDIES Rhett Lewis DO [address] [place] [id number] [facility] [address] [place] [address] Referral ID Status Reason Start Date Expiration Date Visits Requested Visits Authorized [id number] Pending Review Auto-Generat ed Referral 01/04/2023 02/02/2024 1 1 [facility] Summary Purpose Family History No Family [...] or prosecute any alcohol or drug abuse patient.[facility] the event this information is protected by the Federal Confidentiality of Alcohol and Drug Abuse Patient Records regulations: The Federal rules restrict any use of the information to criminally investigate or prosecute any alcohol or drug abuse patient.[facility] Hospital[facility] the event this information is protected by the Federal Confidentiality of Alcohol and Drug Abuse Patient Records regulations: The Federal rules restrict any use of the information to criminally investigate or prosecute any alcohol or drug abuse patient.[facility] HospitalIn the event this information is protected by the Federal Confidentiality of Alcohol and Drug Abuse Patient Records regulations: The Federal rules restrict any use of the information to criminally investigate or prosecute any alcohol or drug abuse patient.[facility] HospitalIn the event this information is protected by the Federal Confidentiality of Alcohol and Drug Abuse Patient Records regulations: The Federal rules restrict any use of the information to criminally investigate or prosecute any alcohol or drug abuse patient.[facility] HospitalIn the event this information is protected by the Federal Confidentiality of Alcohol and Drug Abuse Patient Records regulations: The Federal rules restrict any use of the information to criminally investigate or prosecute any alcohol or drug abuse patient.[facility] HospitalIn the event this information is protected by the Federal Confidentiality of Alcohol and Drug Abuse Patient Records regulations: The Federal rules restrict any use of the information to criminally investigate or prosecute any alcohol or drug abuse patient.[facility] HospitalIn the event this information is protected by the Federal Confidentiality of Alcohol and Drug Abuse Patient Records regulations: The Federal rules restrict any use of the information to criminally investigate or prosecute any alcohol or drug abuse patient.[facility] HospitalIn the event this information is protected by the Federal Confidentiality of Alcohol and Drug Abuse Patient Records regulations: The Federal rules restrict any use of the information to criminally investigate or prosecute any alcohol or drug abuse patient.[facility] HospitalIn the event this information is protected by the Federal Confidentiality of Alcohol and Drug Abuse Patient Records regulations: The Federal rules restrict any use of the information to criminally investigate or prosecute any alcohol or drug abuse patient.[facility] HospitalIn the event this information is protected by the Federal Confidentiality of Alcohol and Drug Abuse Patient Records regulations: The Federal rules restrict any use of the information to criminally investigate or prosecute any alcohol or drug abuse patient.[facility] HospitalIn the event this information is protected by the Federal Confidentiality of Alcohol and Drug Abuse Patient Records regulations: The Federal rules restrict any use of the information to criminally investigate or prosecute any alcohol or drug abuse patient.[facility] HospitalIn the event this information is protected by the Federal Confidentiality of Alcohol and Drug Abuse Patient Records regulations: The Federal rules restrict any use of the information to criminally investigate or prosecute any alcohol or drug abuse patient.[facility] HospitalIn the event this information is protected by the Federal Confidentiality of Alcohol and Drug Abuse Patient Records regulations: The Federal rules restrict any use of the information to criminally investigate or prosecute any alcohol or drug abuse patient.[facility] HospitalIn the event this information is protected by the Federal Confidentiality of Alcohol and Drug Abuse Patient Records regulations: The Federal rules restrict any use of the information to criminally investigate or prosecute any alcohol or drug abuse patient[facility] Reason for Visit (unrecogniz ed section and content) Reason Comments Patient Update Reason Comments Patient Question Reason Comments PA for Stress test/echo Reason Comments Results Stress test Reason Comments New Patient Right index finger m ucous cyst Reason Comments Results Care Teams (unrecognized sec tion and content) Control Cabinet Assembler Relationship Specialty Start Date End Date Luis Eduardo Watts DO PCP - General Family Practice 03/10/15 Control Cabinet Assembler Relationship Specialty Start Date End Date Luis Eduardo Watts DO PCP - General Family Practice 03/10/15 Control Cabinet Assembler Relationship Specialty Start Date End Date Luis Eduardo Watts DO PCP - General Family Medicine 03/10/15 Control Cabinet Assembler Relationship Specialty Start Date End Date Luis Eduardo Watts DO PCP - General Family Medicine 03/10/15 Control Cabinet Assembler Relationship Specialty Start Date End Date Luis Eduardo Watts DO PCP - General Family Medicine 03/10/15 [employer] Assembler Relationship Specialty Start Date End Date Luis Eduardo Watts DO PCP - General Family Medicine 03/10/15 [employer] Cabinet Assembler Relationship Specialty Start Date End Date Luis Eduardo Watts DO PCP - General Family Medicine 03/10/15 [employer] Cabinet Assembler Relationship Specialty Start Date End Date Luis Eduardo Watts [address] [place] [address] PCP - General Family Medicine 01/31/23 Control Cabinet Assembler Relationship Specialty Start Date End Date Luis Eduardo Watts DO PCP - General Family Medicine 03/10/15 [employer] Cabinet Assembler Relationship Specialty Start Date End Date Luis Eduardo Watts DO PCP - General Family Medicine 03/10/15 [employer] Cabinet Assembler Relationship Specialty Start Date End Date Luis Eduardo Watts DO PCP - General Family Medicine 03/10/15 Care Team (unrecognized sect ion and content) Care Team Personnel Name: LUIS EDUARDO WATTS DO Member Role: Primary Care Physician Address: Address: [facility] [address] [place] [address]- Care Team Related Persons Name: NIA MARIO Address: Home [address] [place] [id number] [place] INFORMATION SOURCE (unrecogn ized section and content) DATE CREATED AUTHOR AUTHOR'S ORGANIZ ATION 02/05/[address] [facility] DATE CREATED AUTHOR AUTHOR'S ORGANIZ ATION 02/13/2023 [facility] DATE CREATED AUTHOR AUTHOR'S ORGANIZ ATION 02/22/2023 [facility] DATE CREATED AUTHOR AUTHOR'S ORGANIZ ATION 09/03/2023 [facility] FOR RECORDS PERTAINING TO PATIENTS WHO ARE [...] BE BASED ON THE PRIMARY CLINICAL RECORDS. [employer] [facility]. provides no warranty or guarantee of the accuracy or completeness of information in this document.
[2023-09-11 16:32] LABS: ALB/GLOB Ratio 0.9 RATIO (0.9-2.4); AST(SGOT) 16 U/L (15-37); Alanine Aminotransfer ALT/SGPT 27 U/L (13-56); Albumin, Serum 3.5 g/dL (3.2-5.0); Alkaline Phosphatase 75 U/L (45-117); Anion Gap 7 (5-15); BUN 24 mg/dL (7-18); BUN/Creat Ratio 25.7 RATIO (10-20); Calcium,Total 9.2 mg/dL (8.5-10.1); Chloride 108 mmol/L (98-107); Cholesterol 184 mg/dL (200); Creatinine, Serum 0.93 mg/dL (0.55-1.02); EST Glomerular Filtration Rate 64 mL/min (>60); Est Glom Filt Rate - Afr Amer 77 mL/min (>60); Globulin 3.8 g/dL (2.2-4.2); Glucose 121 mg/dL (74-106); High Density Lipoprotein 70 mg/dL; Potassium 4.3 mmol/L (3.5-5.1); Protein, Total 7.3 g/dL (6.4-8.2); Sodium Level 140 mmol/L (136-145); Triglycerides 157 mg/dL; Very Low Density Lipoprotein 31 mg/dL (5-40)
== END | disposition home or self-care (01) ==
LOC: BIMLAB 14:16
PROVIDERS: PCP Family Medicine; Referring Provider Family Medicine; Visit Provider Family Medicine
DX: Z00.00 Encounter for general adult medical examination without abnormal findings (principal); I10 Essential (primary) hypertension
CPT/HCPCS: 36415; 80053; 80061; 85025

== ENCOUNTER → 2023-09-19 | Outpatient (CLI) | payer MEDICARE, OTHER, SELFPAY ==
--- NOTE | 2023-09-19 08:06 | MRI_ITS ---
STUDY: MRI RIGHT HIP REASON FOR EXAM: Female, 68 years old. Right hip pain. TECHNIQUE: Standardized fat and water weighted pulse sequences were obtained in all 3 orthogonal planes. COMPARISON: Pelvis and right hip radiographs dated 09/04/2023. FINDINGS: There is a tear of the right anterior-superior acetabular labrum (sagittal PD series 9 images 15-17; coronal STIR series 5 images 16-18). Intact right hip joint without articular joint space narrowing. Normal acetabulum. Intact right femoral head, femoral neck and intratrochanteric region. There is a mild strain of the right gluteus medius muscle (coronal STIR series 5 images 12-17). Normal gluteus minimus, medius and iliopsoas tendons and distal insertions. There is mild trochanteric bursitis bilaterally. There is no iliopsoas or iliopectineal bursitis. Normal superior and inferior pubic rami. Normal pubic symphysis. Normal ischial tuberosity. Normal origin of the hamstring tendons. Normal visualized iliac wing, sacroiliac joint, and sacral ala. There is a 3.7 cm right ovarian cyst. Normal visualized soft tissue structures of the pelvis. MRI/Lower Ext Joint Only (Routine) IMPRESSION: Tear of the right anterior-superior acetabular labrum. Mild right gluteus medius muscle strain. Mild trochanteric bursitis bilaterally. 3.7 cm right ovarian cyst. Electronically Signed: Adelso Roblero MD at 9:43 EST ,
--- OUTSIDE RECORDS SUMMARY | 2023-09-19 08:24 | XMS RPT_ITS | CCD ---
Author Name Unknown Address [address] [place] [address] Organization [facility] Care Team Providers Care Weather Forcaster Name Role Phone Luis Eduardo Watts DO [...] to adverse reactions to drug 9 Unknown [facility] Work Phone: (2 sources) Sulfamethoxazole; Translations: [sulfamethoxazole ] Drug Allergy [facility] Medications Current Medications Medication Drug Class(es) Dates [...] Coronary arteriosclerosis; Translations: [Atherosclerotic heart disease of [place] coronary artery without angina pectoris] 02-19-2020 Chronic Disorders of lipid metabolism (16 sources) Mixed hyperlipidemia; Translations: [Mixed hyperlipidemia] Onset: 0 02-19-2020 Chronic Essential hypertension (18 sources) Benign hypertension; Translations: [Essential (primary) hypertension] Onset: 0 02-19-2020 Chronic Other aftercare (1 source) Long-term current use of drug therapy; Translations: [Other group home (current) drug therapy] Episodic Other aftercare (1 [...] Bebo Boggs MD Work Phone: [facility] 01-31-2023 13:01-0400 Body mass index (BMI) [Ratio] 28.19 kg/m2 Bebo Boggs MD Work Phone: [facility] 01-31-2023 13:01-0400 Body weight 81.65 kg Bebo Boggs MD Work Phone: [facility] 01-31-2023 13:01-0400 Diastolic blood pressure 72 mm[Hg] Bebo Boggs MD Work Phone: [facility] 01-31-2023 13:01-0400 Systolic blood pressure 124 mm[Hg] Bebo Boggs MD Work Phone: [facility] Encounters Encounter Date Encounter Type Care Provider Facility Start: 08-29-2023 End: 08-29-2023 ambulatory LUIS EDUARDO WATTS Facility:[id number] Start: 03-15-2023 Refill Rhett caro DO Work Phone: [facility] Procedures Date Procedure Procedure Detail Performing Clinician Start: 02-06-2023 Echo tthrc r-t 2d w/ wom-mode compl spec&colr d Rhett Lewis DO Work Phone: Start: 01-31-2023 Radex fingr minimum 2 views Bebo Boggs MD Work Phone: Start: 08-30-2022 Mammography Beob pitts MD Work Phone: Start: 06-24-2010 Catheterization DEMETRIUS YO STEPHANIE Plan of Treatment Date Care Activity Detail Author Start: 02-20-2024 BP CONTROLLED (<130/80) BP CONTROLLED (<130/80) [facility] in Start: 08-30-2023 Screening for malignant neoplasm of breast Mammogram [facility] Start: 04-27-2023 Influenza vaccination [facility] Start: 2022 ADVANCE DIRECTIVE DISCUSSION ADVANCE DIRECTIVE DISCUSSION [facility] Start: 2022 BONE DENSITY BONE DENSITY [facility] Start: 2022 Bone Density Screening Bone Density Screening [facility] Start: 2022 Pneumococcal Vaccine: 65+ Years (1 - PCV) Pneumococcal Vaccine: 65+ Years (1 - PCV) [facility] Start: 08-27-2022 DEPRESSION ASSESSMENT DEPRESSION ASSESSMENT [facility] Start: 04-27-2022 Influenza vaccination [facility] Start: 02-21-2022 BP CONTROLLED (<130/80) BP CONTROLLED (<130/80) [facility] Start: 04-27-2021 Influenza vaccination INFLUENZA (#1) [facility] Start: 2007 SHINGRIX VACCINE (1 of 2) SHINGRIX VACCINE (1 of 2) [facility] Start: 2007 Zoster Vaccines (1 of 2) Zoster Vaccines (1 of 2) [facility] Start: 2002 COLOGUARD (FIT-DNA) COLOGUARD (FIT-DNA) [facility] Start: 2002 Colonoscopy COLONOSCOPY [facility] Start: 2002 COLORECTAL CANCER SCREENING COLORECTAL CANCER SCREENING [facility] Start: [address] COLONOGRAPHY [facility] Start: 2002 DIABETES SCREEN DIABETES SCREEN [facility] Start: 2002 Diabetes Screening Diabetes Screening [facility] Start: 2002 FECAL OCCULT BLOOD FECAL OCCULT BLOOD [facility] Start: 2002 Lipid 1996 panel - Serum or Plasma Lipid Screening [facility] Start: 2002 LIPID SCREEN LIPID SCREEN [facility] Start: 2002 SIGMOIDOSCOPY SIGMOIDOSCOPY [facility] Start: 1997 Mammography [facility] Start: 1987 HPV TESTING HPV TESTING [facility] Start: 1987 Screening for malignant neoplasm of cervix [facility] Start: 1978 PAP TESTING PAP TESTING [facility] Start: 1978 Screening for malignant neoplasm of cervix Pap Smear [facility] Start: 1976 [facility] Start: 1975 ANNUAL PCP TEAM CHRONIC DISEASE VISIT ANNUAL PCP TEAM CHRONIC DISEASE VISIT [facility] Start: 1975 BP CONTROLLED (<130/80) BP CONTROLLED (<130/80) [facility] Start: 1975 Diabetes mellitus screening Diabetes Screening [facility] Start: 1975 Hepatitis B surface antibody level LDL CHOLESTEROL [facility] Start: 1975 HEPATITIS C SCREENING HEPATITIS C SCREENING [facility] Start: 1975 Hepatitis C screening Hepatitis C Screening [facility] Start: 1975 HIV SCREENING HIV SCREENING [facility] Start: 1969 Adult depression screening assessment DEPRESSION SCREENING [facility] Start: 1964 DTaP/Tdap/Td Vaccines (1 - Tdap) DTaP/Tdap/Td Vaccines (1 - Tdap) [facility] Start: 1963 PNEUMOCOCCAL (1 - PCV) PNEUMOCOCCAL (1 - PCV) [facility] Start: 1963 Pneumococcal Vaccine: 65+ (1 - PCV) Pneumococcal Vaccine: 65+ (1 - PCV) [facility] Start: 1963 PNEUMOCOCCAL: 65+ (1 - PCV) PNEUMOCOCCAL: 65+ (1 - PCV) [facility] Start: 1962 COVID-19 VACCINE (#1) COVID-19 VACCINE (#1) [facility] Start: 1962 COVID-19 VACCINE (1) COVID-19 VACCINE (1) [facility] Start: 1958 MMR Vaccines (1 of 1 - Standard series) MMR Vaccines (1 of 1 - Standard series) [facility] Start: 02-25-1958 COVID-19 VACCINE (#1) COVID-19 VACCINE (#1) [facility] Start: 1957 Annual wellness visit Medicare Initial Physical (IPPE) [facility] Start: 1957 Creatinine measurement Creatinine Level [facility] Start: 1957 Echocardiography Echocardiogram [facility] Start: 1957 Lipid panel Lipid Panel [facility] Start: 1957 Medicare Annual Wellness (AWV) Medicare Annual Wellness (AWV) [facility] Start: 1957 Potassium measurement Potassium Level [facility] Start: 1957 Screening for malignant neoplasm of colon [facility] Start: 1957 Screening for osteoporosis Bone Density Scan [facility] End: 01-04-2024 Echocardiography ECHO Cardiology Routine Syncope, unspecified syncope type 1 Occurrences starting 01/04/2023 until 01/04/2024 [facility] Work Phone: Payers Date Payer Category Payer Medicare [id number] 2022 Unknown [id number] 2021 Unknown [id number] 2019 Medicare [id number] 2019 Unknown ANTHEM BLUE CROS S AND BLUE SHIELD ANTHEM MEDIBLUE HMO [id number] 2019-Present [phone] [address] [place] [address] HMO [id number] 2019 Unknown [id number] 2017 Medicare [id number] 2012 Unknown ANTHEM BLUE CARD PPO OOS [id number] 2012-2019 [address] [place] [address] PPO [id number] 1957 Unknown [id number] 1957 Unknown [id number] Unknown [id number] Unknown [id number] Social History Date Type Detail Facility Start: 02-21-2021 End: 02-19-2023 Tobacco smoking status NHIS Never smoked tobacco [facility] Start: 02-21-2021 End: 02-19-2023 Tobacco use and exposure Smokeless tobacco non-user [facility] Start: 02-21-2021 End: 01-09-2023 Alcohol intake Current drinker of alcohol (finding) [facility] Start: 02-21-2021 History SDOH Alcohol Comment couple times a week [facility] Start: 1955 Sex Assigned At Female [facility] Work Phone: Sex Assigned At Sex [facility] Tobacco smoking status NHIS Tobacco smoking consumption unknown [facility] Start: 01-22-2021 End: 01-31-2023 Exposure to SARS-CoV-2 (event) Not sure [facility] Start: 12-29-2022 End: 01-31-2023 History of Social function [facility] Start: 12-29-2022 End: 01-31-2023 Tobacco use panel [facility] Start: 1955 Sex Assigned At Not on file [facility] National Score (1-100), lower number is lower risk 73 [facility] Start: 02-19-2020 Gender identity Identifies as female gender (finding) [facility] Work Phone: Functional Status Date Assessment Result [...] Cervical AROM: no ROM provokes shoulder symptoms [facility] 11-18-2021 Functional Status [facility] Clinical Notes 04-01-2015 to 08-29-2023 Telephone Encounter - Manju Becker Ginger - 03/15/2023 6:52 AM EDTTelephone Encounter - Manju BeckerGinger - 02/28/2023 8:51 AM EDTTelephone Encounter - Eusebio Solomon - 02/26/2023 8:49 AM EDT Note Date & Type Note Facility 08-29-2023 Note HNO ID: [id number] Author: RHETT LEWIS, DO Service: ? Author [...] (HCC) H/O echocardiogram 04/23/2018 EF 50%, mild-mod MT, trace TR History of cardiac cath 10/21/2009 Minimal non obstructive CAD by cardia cath at [place] History of cardiac catheterization 2009 min cad [...] block) Mixed hyperlipidemia NSVT (nonsustained ventricular tachycardia) ([facility]) 2022 By 2009 event monitor and in [...] edema. Skin: (more content not included)... [facility] 03-15-2023 Miscellaneous Notes Pharmacy faxes requesting refill: Requested Prescriptions Pending Prescriptions Disp Refills simvastatin (ZOCOR) 40 mg tablet [Pharmacy Med Name: SIMVASTATIN 40 MG TABLET] 90 tablet 3 Sig: TAKE 1 TABLET BY MOUTH EVERY DAY IN THE EVENING Date of last visit:02/19/2023 Phone #: [phone] (home) [phone] (cell) The patients preferred pharmacy has been captured for this encounter? yes documented in this encounter [facility] 02-28-2023 Miscellaneous Notes Pharmacy faxes requesting refill: Requested Prescriptions Pending Prescriptions Disp Refills metoprolol succinate ER (TOPROL XL) 25 mg 24 hr tablet [Pharmacy Med Name: METOPROLOL SUCC ER 25 MG TAB] 45 tablet 3 Sig: TAKE 1/2 TABLET BY MOUTH EVERY DAY Date of last visit:02/19/23 Phone #: [phone] (home) [phone] (cell) The patients preferred pharmacy has been captured for this encounter? yes documented in this encounter [facility] 02-26-2023 Miscellaneous Notes Pharmacy faxes requesting refill: Requested Prescriptions Pending Prescriptions Disp Refills losartan (COZAAR) 50 mg tablet [Pharmacy Med Name: LOSARTAN POTASSIUM 50 MG TAB] 90 tablet 3 Sig: TAKE 1 TABLET BY MOUTH EVERY DAY Date of last visit:02/19/2023 Phone #: [phone] (home) [phone] (cell) The patients preferred pharmacy has been captured for this encounter? yes documented in this encounter [facility] 02-19-2023 Note HNO ID: [id number] Author: Rhett Lewis DO Service: ? Author [...] (HCC) H/O echocardiogram 04/23/2018 EF 50%, mild-mod MT, trace TR History of cardiac cath 10/21/2009 Minimal non obstructive CAD by cardia cath at [place] History of cardiac catheterization 2009 min cad [...] motion. Cervical back: (more content not included)... [facility] 02-13-2023 Miscellaneous Notes Spoke with patient and let her know per Joy Adorno CNP, stress test results will be discussed at appointment next week. Will discuss at upcoming apt Patient is calling about her echo results from 02/06. Patient is scheduled for a 1 year follow up next week with Dr Lewis Please advise documented in this encounter [facility] 02-06-2023 Note HNO ID: [id number] Author: Rhett Lewis, DO Service: ? 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 [facility] [address] [facility] [address] Dept: [phone] Dept 01/31/2023 Chief Complaint Patient presents with [...] Not Helpful Injection/Aspiration: Yes - Aspiration by Manager Relationship 2 months ago, prior to that she [...] Mario regarding the natural history, etiology, and terminal supervisor consequences of her condition. We discussed both [...] Boggs MD Hand and Upper Extremity Surgery [facility] Department of Orthopaedics and Sports Medicine 01/31/2023 at 1:16 PM (Please note that portions of this note may have been completed with a voice recognition program. Efforts were made to edit the dictations but occasionally words are mis-transcribed.) documented in this encounter [facility] 01-10-2023 Miscellaneous Notes Called patient and relayed message, patient voiced understanding. Cristobal prince MA ----- Message from Rhett Lewis DO sent at 01/09/2023 6:24 PM EDT ----- Please call the patient and inform them stress test is normal. The strength is normaL. documented in this encounter [facility] 01-05-2023 Miscellaneous Notes Spoke with patient and relayed date, times, and instructions for upcoming testing. Patient voiced understanding. Charlotte Rivas January 05, 2023 8:19 AM Left messages on patient's home phone and cell phone asking her to return the call Scheduled stress and echo at [facility] Stress is 01/09 at 630 am Nothing to eat,drink or smoke after midnight. May take morning meds with small sips of water Patient must register at [phone] option 2 Echo is scheduled at [facility] 02/06 at 7 am Left message asking patient to return the call Orders faxed No auth required for Medicare and Medicare supplement Clyde Middleton Prior authorization request for stress test to be done at [facility] is being submitted for review. Please notify clerical staff when ready. Prior authorization request for Echo to be done at [facility] is being submitted for review. Please notify clerical staff when ready. Sheila Shaffer RN documented in this encounter [facility] 01-03-2023 Miscellaneous Notes Please sign orders. Patient wearing night monitor for syncope and on 01/01/23 she had a 9 beat run of v-tach with rate of 133 bpm. Spoke to patient and let her know Dr Lewis wants to order a stress test and Echo. Patient agreeable. documented in this encounter [facility] 12-29-2022 Note HNO ID: [id number] Author: Dru Jones MA Service: ? Author Type: Digital Strategy Director Type: Progress Notes Filed: 01/16/2023 4:20 PM Note Text: Applied Monitor at this visit. Explained all procedures and instructions. Patient agreeable and voiced understanding. [facility] 12-27-2022 Miscellaneous Notes Patient scheduled to come [...] or have an EKG done. Please advise [phone] (cell) Patient last appointment: 02/20/22 Charlotte Rivas documented in this encounter [facility] 11-30-2022 Miscellaneous Notes Has requested refills too soon. Pharmacy faxes requesting refill: Requested Prescriptions Refused Prescriptions Disp Refills losartan (COZAAR) 50 mg tablet [Pharmacy Med Name: LOSARTAN POTASSIUM 50 MG TAB] 90 tablet 3 Sig: TAKE 1 TABLET BY MOUTH EVERY DAY Date of last visit:02/20/2022 Phone #: [phone] (home) [phone] (cell) The patients preferred pharmacy has been captured for this encounter? yes documented in this encounter [facility] 03-22-2022 Miscellaneous Notes Pharmacy faxes requesting refill: Pending Prescriptions Disp Refills SIMVASTATIN 40 MG TABLET 90 tablet 3 Sig: TAKE 1 TABLET BY MOUTH EVERY DAY IN THE EVENING RANDOLPH: Yes Date of last visit:02/20/2022 Phone #: [phone] (home) [phone] (cell) The patients preferred pharmacy has been captured for this encounter? yes documented in this encounter [facility] 03-13-2022 Miscellaneous Notes Pharmacy faxes requesting refill: Pending Prescriptions Disp Refills METOPROLOL SUCCINATE ER 25 MG TABLET,EXTENDED RELEASE 24 HR 45 tablet 3 Sig: TAKE 1/2 TABLET BY MOUTH EVERY DAY RANDOLPH: Yes Date of last visit:02/20/2022 Phone #: [phone] (home) [phone] (cell) The patients preferred pharmacy has been captured for this encounter? yes documented in this encounter [facility] 02-08-2022 Miscellaneous Notes Pharmacy faxes requesting refill: Pending Prescriptions Disp Refills LOSARTAN 50 MG TABLET 30 tablet 0 Sig: TAKE 1 TABLET BY MOUTH EVERY DAY RANDOLPH: Yes Future appointment 02/20/22, can get refills that day. Date of last visit:02/21/2021 Phone #: [phone] (home) [phone] (cell) The patients preferred pharmacy has been captured for this encounter? yes documented in this encounter [facility] 11-14-2021 Miscellaneous Notes Pharmacy faxes requesting refill: Pending Prescriptions Disp Refills SIMVASTATIN 40 MG TABLET 90 tablet 0 Sig: TAKE 1 TABLET BY MOUTH EVERY DAY IN THE EVENING RANDOLPH: Yes Date of last visit:02/21/21 Phone #: [phone] (home) [phone] (cell) The patients preferred pharmacy has been captured for this encounter? yes documented in this encounter [facility] 04-01-2015 History of Presen t illness Narrative DATE OF SERVICE: 02/20/2015 This 59-year-old female patient came to [facility] with a complaint of buttocks area rash [...] RN present in the room as a squeegeer and former. Shows only a large patchy area of [...] primary care physician for tetanus shot. RHONDA/francia [id number] Julio César Coffey MD CC: Verified/Reviewed by 10/19/20 1729 [facility]ERS [facility] PATIENT NAME: RAMIREZ MARIO [facility] Schmid MEDICAL REC #: [id number] [place] [address] [place] [facility] documented in this encounter [facility] Evaluation + Plan note Future Appointments Appointment Date:12/30/2021 08:00:00 AM Scheduled Provider: Location:[facility] Appointment Type:PT Outpatient Evaluation [facility] documented [facility] this [facility] Diagnosis Digital mucous cyst of finger of right hand [facility] Diagnosis Benign hypertension- Primary Essential hypertension, benign [facility] Narrative No data available for this section [facility] Hospital Discharge instructions No data available for this section [facility] Progress note No data available for this section [facility] Reason for referral (narrative)* Outpatient Procedure (Routine) - Pending Review Specialty Diagnoses / Procedures Referred By Jose t Referred To [facility] Diagnoses Syncope, unspecified syncope type Procedures ECHO ECHO TTHRC R-T 2D W/WOM-MODE COMPL SPEC&COLR D Rhett Lewis DO [address] [place] [address] [facility] [address] [place] [address] Referral ID Status Reason Start Date Expiration Date Visits Requested Visits Authorized [id number] Pending Review Auto-Generat ed Referral 01/04/2023 01/03/2024 1 1 * Diagnostic Procedure Only (Routine) - Pending Review Specialty Diagnoses / Procedures Referred By Contact Referred To Contact [facility] Diagnoses Syncope, unspecified syncope type Abnormal electrocardiogram (ECG) (EKG) Procedures NM CARDIAC PERF STRESS/EXERCISE MYOCARDIAL SPECT MULTIPLE STUDIES Rhett Lewis DO [address] [place] [address] [facility] [address] [place] [address] Referral ID Status Reason Start Date Expiration Date Visits Requested Visits Authorized [id number] Pending Review Auto-Generat ed Referral 01/04/2023 02/02/2024 1 1 [facility] Summary Purpose Family History No Family History [...] or prosecute any alcohol or drug abuse patient.[facility] the event this information is protected by the Federal Confidentiality of Alcohol and Drug Abuse Patient Records regulations: The Federal rules restrict any use of the information to criminally investigate or prosecute any alcohol or drug abuse patient.[facility] the event this information is protected by the Federal Confidentiality of Alcohol and Drug Abuse Patient Records regulations: The Federal rules restrict any use of the information to criminally investigate or prosecute any alcohol or drug abuse patient.[facility] the event this information is protected by the Federal Confidentiality of Alcohol and Drug Abuse Patient Records regulations: The Federal rules restrict any use of the information to criminally investigate or prosecute any alcohol or drug abuse patient.[facility] the event this information is protected by the Federal Confidentiality of Alcohol and Drug Abuse Patient Records regulations: The Federal rules restrict any use of the information to criminally investigate or prosecute any alcohol or drug abuse patient.[facility] the event this information is protected by the Federal Confidentiality of Alcohol and Drug Abuse Patient Records regulations: The Federal rules restrict any use of the information to criminally investigate or prosecute any alcohol or drug abuse patient.[facility] the event this information is protected by the Federal Confidentiality of Alcohol and Drug Abuse Patient Records regulations: The Federal rules restrict any use of the information to criminally investigate or prosecute any alcohol or drug abuse patient.[facility] the event this information is protected by the Federal Confidentiality of Alcohol and Drug Abuse Patient Records regulations: The Federal rules restrict any use of the information to criminally investigate or prosecute any alcohol or drug abuse patient.[facility] the event this information is protected by the Federal Confidentiality of Alcohol and Drug Abuse Patient Records regulations: The Federal rules restrict any use of the information to criminally investigate or prosecute any alcohol or drug abuse patient.[facility] the event this information is protected by the Federal Confidentiality of Alcohol and Drug Abuse Patient Records regulations: The Federal rules restrict any use of the information to criminally investigate or prosecute any alcohol or drug abuse patient.[facility] the event this information is protected by the Federal Confidentiality of Alcohol and Drug Abuse Patient Records regulations: The Federal rules restrict any use of the information to criminally investigate or prosecute any alcohol or drug abuse patient.[facility]igh[facility] the event this information is protected by the Federal Confidentiality of Alcohol and Drug Abuse Patient Records regulations: The Federal rules restrict any use of the information to criminally investigate or prosecute any alcohol or drug abuse patient.[facility] the event this information is protected by the Federal Confidentiality of Alcohol and Drug Abuse Patient Records regulations: The Federal rules restrict any use of the information to criminally investigate or prosecute any alcohol or drug abuse patient.[facility]igh[facility] the event this information is protected by the Federal Confidentiality of Alcohol and Drug Abuse Patient Records regulations: The Federal rules restrict any use of the information to criminally investigate or prosecute any alcohol or drug abuse patient.[facility]igh[facility] the event this information is protected by the Federal Confidentiality of Alcohol and Drug Abuse Patient Records regulations: The Federal rules restrict any use of the information to criminally investigate or prosecute any alcohol or drug abuse patient.[facility] Reason for Visit (unrecogniz ed section and content) Reason Comments Patient Update Reason Comments Patient Question Reason Comments PA for Stress test/echo Reason Comments Results Stress test Reason Comments New Patient Right index finger m ucous cyst Reason Comments Results Care Teams (unrecognized sec tion and content) Weather Forcaster Relationship Specialty Start Date End Date Luis Eduardo Watts DO PCP - General Family Practice 03/10/15 Weather Forcaster Relationship Specialty Start Date End Date Luis Eduardo Watts DO PCP - General Family Practice 03/10/15 Weather Forcaster Relationship Specialty Start Date End Date Luis Eduardo Watts DO PCP - General Family Medicine 03/10/15 Weather Forcaster Relationship Specialty Start Date End Date Luis Eduardo Watts DO PCP - General Family Medicine 03/10/15 Weather Forcaster Relationship Specialty Start Date End Date Luis Eduardo Watts DO PCP - General Family Medicine 03/10/15 Weather Forcaster Relationship Specialty Start Date End Date Luis Eduardo Watts DO PCP - General Family Medicine 03/10/15 Weather Forcaster Relationship Specialty Start Date End Date Luis Eduardo Watts DO PCP - General Family Medicine 03/10/15 Weather Forcaster Relationship Specialty Start Date End Date Luis Eduardo Watts [address] [place] [address] PCP - General Family Medicine 01/31/23 Weather Forcaster Relationship Specialty Start Date End Date Luis Eduardo Watts DO PCP - General Family Medicine 03/10/15 Weather Forcaster Relationship Specialty Start Date End Date Luis Eduardo Watts DO PCP - General Family Medicine 03/10/15 Weather Forcaster Relationship Specialty Start Date End Date Luis Eduardo Watts DO PCP - General Family Medicine 03/10/15 Care Team (unrecognized sect ion and content) Care Team Personnel Name: LUIS EDUARDO WATTS DO Member Role: Primary Care Physician Address: Address: [facility] [address] [facility] [place] [address]- Care Team Related Persons Name: NIA MARIO Address: Home [address] [place] [id number] [place] INFORMATION SOURCE (unrecogn ized section and content) DATE CREATED AUTHOR AUTHOR'S ORGANIZ ATION 02/05/2023 [facility] DATE CREATED AUTHOR AUTHOR'S ORGANIZ ATION 02/13/2023 [facility] DATE CREATED AUTHOR AUTHOR'S ORGANIZ ATION 02/22/2023 [facility] DATE CREATED AUTHOR AUTHOR'S ORGANIZ ATION 09/03/2023 [facility] FOR RECORDS PERTAINING TO PATIENTS WHO [...] BE BASED ON THE PRIMARY CLINICAL RECORDS. [employer] [facility]. provides no warranty or guarantee of the accuracy or completeness of information in this document.
--- NOTE | 2023-09-19 10:09 | BI_ITS ---
MAMMOGRAPHY - BILATERAL SCREENING REASON FOR EXAM: Female, 68 years old. Routine annual screening examination. PERTINENT HISTORY: Non-contributory. TECHNIQUE: Digital bilateral breast jarvis (3D mammographic acquisition) in the CC and MLO projections. 2-D mediolateral oblique (MLO) and craniocaudad (CC) views of both breasts were obtained. CAD: Full Field Digital Mammography with Computer Added Detection was performed. COMPARISON: Comparison is made with prior study dated August 30, 2022 and August 02, 2021. FINDINGS: Breast Composition: The breasts are almost entirely fatty. There are no dominant masses or suspicious calcifications. No other significant abnormalities are identified. There has been no significant change since the prior study. BI/SCRN MAMM (CAD)W/JARVIS BILAT IMPRESSION: Stable bilateral screening mammogram. Yearly follow-up mammogram recommended. (A) ASSESSMENT CATEGORY: BIRADS Category 1: Negative. A letter regarding these results will be sent to the patient by the facility within 30 days. Approximately 10% of breast cancers are not detected by mammography. A normal mammogram should not delay biopsy of a clinically suspicious abnormality. [id number] Electronically Signed: Oli Mathews MD at 14:17 EST ,
== END | disposition home or self-care (01) ==
LOC: MRI 08:03
PROVIDERS: PCP Family Medicine; Referring Provider Family Medicine; Visit Provider Family Medicine
DX: M25.551 Pain in right hip (principal); G89.29 Other chronic pain; Z12.31 Encounter for screening mammogram for malignant neoplasm of breast
CPT/HCPCS: 73721; 77063; 77067

== ENCOUNTER → 2024-11-12 | Outpatient (CLI) | payer MEDICARE, OTHER, SELFPAY ==
[2024-11-12 13:00] LABS: ALB/GLOB Ratio 1.5 RATIO (0.9-2.4); AST(SGOT) 25 U/L (<=31); Alanine Aminotransfer ALT/SGPT 25 U/L (<=34); Albumin, Serum 4.5 g/dL (3.4-4.8); Alkaline Phosphatase 68 U/L (35-104); Anion Gap 12 (5-15); BUN 17 mg/dL (4-19); BUN/Creat Ratio 24.4 RATIO (10-20); Calcium,Total 9.8 mg/dL (7.6-11.0); Carbon Dioxide 24.1 mmol/L (21.0-32.0); Chloride 104 mmol/L (98-108); Cholesterol 187 mg/dL (<=200); EST Glomerular Filtration Rate 95 (>60); Glucose 96 mg/dL (70-99); High Density Lipoprotein 83 mg/dL; Low Density Lipoprotein Calc. 84 mg/dL; Potassium 4.4 mmol/L (3.3-5.1); Protein, Total 7.5 g/dL (5.9-8.4); Sodium Level 140 mmol/L (133-145); Total Bilirubin 0.58 mg/dL (0.00-1.30); Triglycerides 102 mg/dL; Very Low Density Lipoprotein 20 mg/dL (5-40); cholesterol:hdl ratio screen 2.25
== END | disposition home or self-care (01) ==
LOC: BIMLAB 10:02
PROVIDERS: PCP Family Medicine; Referring Provider Family Medicine; Visit Provider Family Medicine
DX: E78.00 Pure hypercholesterolemia, unspecified (principal); I10 Essential (primary) hypertension
CPT/HCPCS: 36415; 80053; 80061

== ENCOUNTER → 2024-11-14 | Outpatient (CLI) | payer MEDICARE, OTHER, SELFPAY ==
--- NOTE | 2024-11-14 13:00 | BI_ITS ---
EXAM: SCRN MAMM (CAD)W/JARVIS BILAT 11/14/2024 CLINICAL HISTORY: F, Age 69 y/o , SCREENING. No family history of breast cancer. TECHNIQUE: Bilateral screening digital breast tomosynthesis with 2D and 3D images. Computer aided detection. COMPARISON: Prior exam(s) dated 09/19/2023, 08/30/2022. FINDINGS: TISSUE DENSITY: The breast tissue is almost entirely fatty. Bilateral Breast Mammographic Findings: No significant masses, calcifications or other abnormalities are identified. BI/SCRN MAMM (CAD)W/JARVIS BILAT IMPRESSION: There is no mammographic evidence of malignancy. OVERALL FINAL ASSESSMENT: BIRADS 1 NEGATIVE. RECOMMENDATION: Routine annual follow-up in 1 Year A letter with findings and recommendations will be mailed to the patient. Reading Location: [facility] [place]
== END | disposition home or self-care (01) ==
LOC: OPBI 12:58
PROVIDERS: PCP Family Medicine; Referring Provider Family Medicine; Visit Provider Family Medicine
DX: Z12.31 Encounter for screening mammogram for malignant neoplasm of breast (principal)
CPT/HCPCS: 77063; 77067

== ENCOUNTER → 2025-07-09 | Outpatient (CLI) | payer MEDICARE, OTHER, SELFPAY ==
--- NOTE | 2025-07-09 11:31 | RAD_ITS ---
PROCEDURE: FINGER(S) MIN 2 VIEWS 07/09/2025 REASON FOR EXAM: BILATERAL THUMB PAIN TECHNIQUE: Procedure Code: RADFIN Modality: DX Procedure: FINGER(S) MIN 2 VIEWS Laterality: Right COMPARISON: None FINDINGS: Bones: Diffuse osteopenia of the osseous structures are noted. There are no fractures or dislocations. 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 Moderate to significant osteoarthritic changes are seen involving the 1st carpometacarpal joint. There is subluxation of the distal phalanx radially (laterally) in relationship to the proximal phalanx by a proximally 3 mm.. Soft tissues: Minimal soft tissue swelling of the digit is noted. RAD/Finger(s) Min 2 Views IMPRESSION: Diffuse osteopenia of the osseous structures of the right thumb are noted. 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 Moderate to significant osteoarthritic changes are seen involving the 1st carpo metacarpal joint. There is subluxation of the distal phalanx radially (laterally) in relationship to the proximal phalanx by a proximally 3 mm.. Minimal soft tissue swelling of the digit is noted. Reading Location: [id number]
--- NOTE | 2025-07-09 11:37 | RAD_ITS ---
PROCEDURE: FINGER(S) MIN 2 VIEWS 07/09/2025 REASON FOR EXAM: BILAT THUMB PAIN TECHNIQUE: Procedure Code: RADABIGAIL Modality: DX Procedure: FINGER(S) MIN 2 VIEWS Laterality: Left COMPARISON: None FINDINGS: Three views of the 1st digit left hand were obtained. There are no fractures or dislocations. Diffuse osteopenia of the osseous structures of the left thumb are noted. 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 Moderate to significant osteoarthritic changes are seen involving the 1st carpometacarpal joint. There is subluxation of the distal phalanx radially (laterally) in relationship to the proximal phalanx by a proximally 3 mm.. Minimal soft tissue swelling of the digit is noted. RAD/Finger(s) Min 2 Views IMPRESSION: Diffuse osteopenia of the osseous structures of the left thumb are noted. 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 Moderate to significant osteoarthritic changes are seen involving the 1st carpo metacarpal joint. There is subluxation of the distal phalanx radially (laterally) in relationship to the proximal phalanx by a proximally 3 mm.. Minimal soft tissue swelling of the digit is noted. Reading Location: [id number]
[2025-07-09 15:51] LABS: CRP < 3.00 mg/L (0.0-3.0)
== END | disposition home or self-care (01) ==
LOC: MTLAB 11:29
PROVIDERS: PCP Family Medicine; Referring Provider Family Medicine; Visit Provider Family Medicine
DX: M79.644 Pain in right finger(s) (principal); M79.645 Pain in left finger(s)
CPT/HCPCS: 36415; 73140; 85652; 86140; 86431